=== PATIENT | female | born 1955 | race Caucasian/White ===

== ENCOUNTER → 2017-06-29 09:34 | Outpatient (CLI) | payer OTHER, SELFPAY ==
[2017-06-29 12:43] LABS: AST(SGOT) 22 U/L (15-37); Alanine Aminotransfer ALT/SGPT 22 U/L (13-56); Albumin, Serum 3.8 g/dL (3.2-5.0); Alkaline Phosphatase 83 U/L (45-117); Anion Gap 8 (5-15); BUN 13 mg/dL (7-18); BUN/Creat Ratio 16.9 RATIO (10-20); Calcium,Total 8.9 mg/dL (8.5-10.1); Chloride 104 mmol/L (98-107); Creatinine, Serum 0.77 mg/dL (0.55-1.02); EST Glomerular Filtration Rate 80 mL/min (>60); Est Glom Filt Rate - Afr Amer 97 mL/min (>60); Globulin 3.7 g/dL (2.2-4.2); Glucose 114 mg/dL (74-106); Potassium 3.9 mmol/L (3.5-5.1); Protein, Total 7.5 g/dL (6.4-8.2); Sodium Level 140 mmol/L (136-145)
[2017-06-29 12:48] LABS: Hemoglobin A1c 5.5 % (4.2-6.3)
== END ==
PROVIDERS: Family Provider Family Medicine; PCP Family Medicine; Visit Provider Family Medicine
DX: E11.9 Type 2 diabetes mellitus without complications (principal)
CPT/HCPCS: 36415; 80053; 83036

== ENCOUNTER → 2018-01-10 15:06 | Outpatient (CLI) | payer MEDICARE, OTHER, SELFPAY ==
[2018-01-10 18:04] LABS: Hemoglobin A1c 5.5 % (4.2-6.3)
== END ==
PROVIDERS: Family Provider Family Medicine; PCP Family Medicine; Referring Provider Family Medicine; Visit Provider Family Medicine
DX: E11.9 Type 2 diabetes mellitus without complications (principal)
CPT/HCPCS: 36415; 83036

== ENCOUNTER → 2019-04-12 11:15 | Outpatient (CLI) | payer MEDICARE, OTHER, SELFPAY ==
[2019-04-12 11:00] VITALS: BMI 43.4
[2019-04-12 12:51] LABS: Absolute Lymphocyte Count 1.58 X10^3/uL (0.83-4.51); Absolute Neutrophil Count 3.8 X10^3/uL (2.0-7.7); Basophil% 1.6 % (0-1); Eosinophil# 0.23 X10^3/uL; Eosinophils% 3.7 % (0-5); Hematocrit 43.4 % (37-47); Hemoglobin 14.3 g/dL (12.0-15.0); Lymphocyte # 1.58 X10^3/ul (4.0); Lymphocyte % 25.3 % (19-41); Mean Corp Hgb Conc 32.9 g/dL (32-36); Mean Corpuscular Hgb 27.1 pg (27.0-32.0); Mean Corpuscular Volume 82.4 fL (81-99); Mean Platelet Vol. 10.3 fl (6.2-12.0); Monocyte# 0.51 X10^3/uL; Monocyte% 8.2 % (0-10); NRBC Flagged by Analyzer 0 % (0-5); Neutrophil # 3.82 X10^3/uL (2.7-7.7); Platelet Count 249 K/mm3 (150-450); RBC Distribution Width CV 12.6 % (11.6-14.6); RBC Distribution Width SD 38.1 fl (35.1-43.9); Red Blood Count 5.27 M/mm3 (4.2-5.4); White Blood Count 6.3 K/mm3 (4.4-11.0)
[2019-04-12 12:53] LABS: ALB/GLOB Ratio 0.9 RATIO (0.9-2.4); AST(SGOT) 18 U/L (15-37); Alanine Aminotransfer ALT/SGPT 28 U/L (13-56); Albumin, Serum 3.6 g/dL (3.2-5.0); Alkaline Phosphatase 86 U/L (45-117); Anion Gap 6 (5-15); BUN 17 mg/dL (7-18); BUN/Creat Ratio 20.8 RATIO (10-20); Calcium,Total 9.1 mg/dL (8.5-10.1); Chloride 108 mmol/L (98-107); Creatinine, Serum 0.82 mg/dL (0.55-1.02); EST Glomerular Filtration Rate 75 mL/min (>60); Est Glom Filt Rate - Afr Amer 90 mL/min (>60); Globulin 3.8 g/dL (2.2-4.2); Glucose 137 mg/dL (74-106); Potassium 4.3 mmol/L (3.5-5.1); Protein, Total 7.4 g/dL (6.4-8.2); Sodium Level 139 mmol/L (136-145)
== END ==
PROVIDERS: Family Provider Family Medicine; PCP Family Medicine; Visit Provider Nurse Practitioner Family
DX: E11.9 Type 2 diabetes mellitus without complications (principal); M53.9 Dorsopathy, unspecified; R53.83 Other fatigue
CPT/HCPCS: 36415; 80053; 84443; 85025

== ENCOUNTER → 2019-08-21 09:56 | Outpatient (CLI) | payer MEDICARE, OTHER, SELFPAY ==
[2019-08-21 09:13] VITALS: BMI 43.4
--- NOTE | 2019-08-21 09:58 | RAD_ITS ---
STUDY: X-RAY - UNILATERAL RIBS ( RIGHT ) WITH CHEST REASON FOR EXAM: Female, 64 years old. Right side pain since having gallbladder removed about a year ago TECHNIQUE - RIBS: 4 view(s) of the ribs. TECHNIQUE - CHEST: Single PA view of the chest. COMPARISON: None. FINDINGS - RIBS: Normal visualized ribs without a demonstrated fracture. FINDINGS - CHEST: The lungs are clear and expanded. There is no demonstrated pleural abnormality. Normal size heart. Normal mediastinum and dhaval. Normal visualized pulmonary arteries. Normal visualized aortic arch and descending thoracic aorta. There are diffuse degenerative changes of the visualized thoracic spine. Normal visualized ribs, clavicles, and shoulders. There is no demonstrated abnormality of the visualized soft tissue structures of the upper abdomen. RAD/Ribs Uni Min 3V w/PA Chest IMPRESSION: RIBS: Normal x-ray examination of the ribs. CHEST: No acute pulmonary process Electronically Signed: Dakota Wooten MD at 10:31 EDT , Service support ,
== END ==
PROVIDERS: PCP Family Medicine; Referring Provider Family Medicine; Visit Provider Family Medicine
DX: R07.81 Pleurodynia (principal)
CPT/HCPCS: 71101

== ENCOUNTER → 2019-08-30 07:26 | Outpatient (CLI) | payer MEDICARE, OTHER, SELFPAY ==
[2019-08-21 09:13] VITALS: BMI 43.4
--- NOTE | 2019-08-30 07:30 | US_ITS ---
STUDY: ABDOMINAL ULTRASOUND - RIGHT UPPER QUADRANT REASON FOR VISIT: Female, 64 years old pain TECHNIQUE: Ultrasound evaluation of the right upper quadrant was performed with real-time and static miramontes-scale imaging. TECHNICAL QUALITY: Adequate. COMPARISON: None. FINDINGS: Liver: The liver measures 14.5 cm. There is increased echogenicity consistent with mild degree of fatty infiltration. The bile ducts are within normal limits. There is hepatic color flow. The direction of portal flow is hepatopetal. There is no demonstrated mass lesion. Gallbladder: The patient is status post cholecystectomy. Common Bile Duct (C.B.D.): The common bile duct measures 7.7 mm. Pancreas: There is nonvisualization of the pancreas due to overlying bowel gas. Right Kidney: Normal size of the right kidney. The right kidney measures 9.1 cm x 4.6 cm x 4.6 cm. Normal renal cortex. The right cortex measures 1.3 cm. There is no demonstrated renal mass or cyst. There is no right hydronephrosis. US/Liver IMPRESSION: The patient is status post cholecystectomy. Mild degree of fatty infiltration of the liver. Electronically Signed: Ronak Mancia, at 12:52 EDT , Service support ,
== END ==
PROVIDERS: PCP Family Medicine; Referring Provider Family Medicine; Visit Provider Family Medicine
DX: R10.11 Right upper quadrant pain (principal)
CPT/HCPCS: 76705

== ENCOUNTER → 2019-09-20 15:07 | Outpatient (CLI) | payer MEDICARE, OTHER, SELFPAY ==
[2019-09-20 13:49] VITALS: BMI 43.4
[2019-09-25 15:58] LABS: HPV Reflexed? NOT INDICATED
== END ==
PROVIDERS: PCP Family Medicine; Visit Provider Family Medicine
DX: Z01.419 Encounter for gynecological examination (general) (routine) without abnormal findings (principal)
CPT/HCPCS: 88175; G0145

== ENCOUNTER → 2019-10-03 15:33 | Outpatient (CLI) | payer MEDICARE, OTHER, SELFPAY ==
[2019-09-20 13:49] VITALS: BMI 43.4
--- NOTE | 2019-10-03 15:39 | BI_ITS ---
MAMMOGRAPHY - BILATERAL SCREENING REASON FOR EXAM: Female, 64 years old. Routine annual screening examination. PERTINENT HISTORY: Non-contributory. TECHNIQUE: Digital bilateral breast adwoa (3D mammographic acquisition) in the CC and MLO projections. 2-D mediolateral oblique (MLO) and craniocaudad (CC) views of both breasts were obtained. CAD: Full Field Digital Mammography with Computer Added Detection was performed. COMPARISON: Comparison is made with prior examination dated July 12, 2016 and January 07, 2016. FINDINGS: Breast Composition: The breasts are heterogeneously dense, which may obscure small masses. There are no dominant masses or suspicious calcifications. Stable benign-appearing axillary lymph nodes. No other significant abnormalities are identified. There has been no significant change since the prior study. BI/SCREEN MAMM (CAD) W/ADWOA BILAT IMPRESSION: Stable bilateral screening mammogram. Yearly follow-up mammogram recommended. (A) ASSESSMENT CATEGORY: BIRADS Category 2: Benign. A letter regarding these results will be sent to the patient by the facility within 30 days. Approximately 10% of breast cancers are not detected by mammography. A normal mammogram should not delay biopsy of a clinically suspicious abnormality. [id number] Electronically Signed: Ronak Mancia, at 7:27 EDT , Service support ,
== END ==
PROVIDERS: PCP Family Medicine; Referring Provider Family Medicine; Visit Provider Family Medicine
DX: Z12.31 Encounter for screening mammogram for malignant neoplasm of breast (principal)
CPT/HCPCS: 77063; 77067

== ENCOUNTER → 2019-10-24 10:46 | Outpatient (CLI) | payer MEDICARE, OTHER, SELFPAY ==
[2019-10-24 09:54] VITALS: BMI 42.6
== END ==
PROVIDERS: PCP Family Medicine; Referring Provider Chiropractor; Visit Provider Chiropractor
DX: M99.03 Segmental and somatic dysfunction of lumbar region (principal)
CPT/HCPCS: 72100

== ENCOUNTER → 2020-04-02 09:55 | Outpatient (CLI) | payer MEDICARE, OTHER, SELFPAY ==
[2020-04-02 09:02] VITALS: BMI 44.6
[2020-04-02 13:20] LABS: Hemoglobin A1c 5.7 % (3.8-5.6)
[2020-04-02 13:39] LABS: Anion Gap 7 (5-15); BUN 18 mg/dL (7-18); BUN/Creat Ratio 25.4 RATIO (10-20); Calcium,Total 9.2 mg/dL (8.5-10.1); Chloride 106 mmol/L (98-107); Creatinine, Serum 0.71 mg/dL (0.55-1.02); EST Glomerular Filtration Rate 87 mL/min (>60); Est Glom Filt Rate - Afr Amer 106 mL/min (>60); Glucose 110 mg/dL (74-106); Potassium 4.4 mmol/L (3.5-5.1); Sodium Level 137 mmol/L (136-145)
== END ==
PROVIDERS: PCP Family Medicine; Visit Provider Family Medicine
DX: E11.9 Type 2 diabetes mellitus without complications (principal)
CPT/HCPCS: 36415; 80048; 83036

== ENCOUNTER → 2020-07-29 11:27 | Outpatient (CLI) | payer MEDICARE, OTHER, SELFPAY ==
[2020-04-02 09:02] VITALS: BMI 44.6
[2020-07-29 15:01] LABS: Hematocrit 44.9 % (37-47); Hemoglobin 14.8 g/dL (12.0-15.0); Mean Corpuscular Hgb 27.2 pg (27.0-32.0); Mean Corpuscular Volume 82.5 fL (81-99); Mean Platelet Vol. 10.4 fl (6.2-12.0); Platelet Count 241 K/mm3 (150-450); RBC Distribution Width CV 12.5 % (11.6-14.6); RBC Distribution Width SD 37.5 fl (35.1-43.9); Red Blood Count 5.44 M/mm3 (4.2-5.4); White Blood Count 6.1 K/mm3 (4.4-11.0)
[2020-07-29 15:31] LABS: Hemoglobin A1c 5.8 % (3.8-5.6)
[2020-07-29 15:36] LABS: ALB/GLOB Ratio 1.2 RATIO (0.9-2.4); AST(SGOT) 15 U/L (15-37); Alanine Aminotransfer ALT/SGPT 26 U/L (13-56); Albumin, Serum 3.8 g/dL (3.2-5.0); Alkaline Phosphatase 88 U/L (45-117); Anion Gap 8 (5-15); BUN 12 mg/dL (7-18); BUN/Creat Ratio 16.9 RATIO (10-20); Chloride 106 mmol/L (98-107); Creatinine, Serum 0.71 mg/dL (0.55-1.02); EST Glomerular Filtration Rate 87 mL/min (>60); Est Glom Filt Rate - Afr Amer 105 mL/min (>60); Globulin 3.1 g/dL (2.2-4.2); Glucose 111 mg/dL (74-106); Potassium 4.1 mmol/L (3.5-5.1); Protein, Total 6.9 g/dL (6.4-8.2); Sodium Level 140 mmol/L (136-145); Thyroid Stim Hormone (TSH) 2.02 uIU/mL (0.358-3.74); Vitamin D,25 Hydroxy 12.4 ng/mL
== END ==
PROVIDERS: PCP Family Medicine; Referring Provider Psychiatry & Neurology Psychiatry; Visit Provider Psychiatry & Neurology Psychiatry
DX: R40.0 Somnolence (principal)
CPT/HCPCS: 36415; 80053; 82306; 83036; 84443; 85027

== ENCOUNTER → 2020-09-11 09:44 | Outpatient (CLI) | payer MEDICARE, OTHER, SELFPAY ==
[2020-04-02 09:02] VITALS: BMI 44.6
[2020-09-11 12:23] LABS: Vitamin D,25 Hydroxy 36.5 ng/mL
[2020-09-11 12:26] LABS: Cholesterol 254 mg/dL (200); Free T3 2.3 pg/mL (2.18-3.98); Glucose 129 mg/dL (74-106); High Density Lipoprotein 65 mg/dL; Thyroid Stim Hormone (TSH) 2.02 uIU/mL (0.358-3.74); Triglycerides 137 mg/dL; Very Low Density Lipoprotein 27 mg/dL (5-40)
== END ==
PROVIDERS: PCP Family Medicine; Referring Provider Psychiatry & Neurology Psychiatry; Visit Provider Psychiatry & Neurology Psychiatry
DX: R73.03 Prediabetes (principal); E55.9 Vitamin D deficiency, unspecified
CPT/HCPCS: 36415; 80061; 82306; 82947; 84439; 84443; 84481

== ENCOUNTER → 2020-12-18 15:03 | Outpatient (CLI) | payer MEDICARE, OTHER, SELFPAY ==
[2020-12-18 18:45] LABS: Free T3 2.6 pg/mL (2.18-3.98); T4 Free Direct 0.78 ng/dL (0.76-1.46)
== END ==
PROVIDERS: PCP Family Medicine; Referring Provider Psychiatry & Neurology Psychiatry; Visit Provider Psychiatry & Neurology Psychiatry
DX: Z79.899 Other long term (current) drug therapy (principal)
CPT/HCPCS: 36415; 84439; 84443; 84481

== ENCOUNTER 2021-06-02 12:59 | Outpatient (CLI) | payer MEDICARE, OTHER, SELFPAY ==
--- NOTE | 2021-06-02 13:01 | BI_ITS ---
MAMMOGRAPHY - BILATERAL SCREENING REASON FOR EXAM: Female, 66 years old. Routine annual screening examination. PERTINENT HISTORY: Non-contributory. History of prior left breast biopsy. TECHNIQUE: Digital bilateral breast adwoa (3D mammographic acquisition) in the CC and MLO projections. 2-D mediolateral oblique (MLO) and craniocaudad (CC) views of both breasts were obtained. CAD: Full Field Digital Mammography with Computer Added Detection was performed. COMPARISON: Comparison is made with prior study dated 10/03/2019. FINDINGS: Breast Composition: The breasts are heterogeneously dense, which may obscure small masses. There are no dominant masses or suspicious calcifications. Stable small benign appearing bilateral axillary nodes. No other significant abnormalities are identified. There has been no significant change since the prior study. BI/SCRN MAMM (CAD)W/ADWOA BILAT IMPRESSION: Stable bilateral screening mammogram. Yearly follow-up mammogram recommended. (A) ASSESSMENT CATEGORY: BIRADS Category 2: Benign. A letter regarding these results will be sent to the patient by the facility within 30 days. Approximately 10% of breast cancers are not detected by mammography. A normal mammogram should not delay biopsy of a clinically suspicious abnormality. [id number] Electronically Signed: Ronak Mancia MD at 14:19 EST ,
== END 2021-06-02 23:59 | disposition home or self-care (01) ==
LOC: OPBI 13:00
PROVIDERS: PCP Family Medicine; Referring Provider Family Medicine; Visit Provider Family Medicine
DX: Z12.31 Encounter for screening mammogram for malignant neoplasm of breast (principal)
CPT/HCPCS: 77063; 77067

== ENCOUNTER 2021-07-03 15:24 | Outpatient (CLI) | payer MEDICARE, OTHER, SELFPAY ==
[2021-07-03 18:24] LABS: Free T3 2.3 pg/mL (2.18-3.98); T4 Free Direct 0.85 ng/dL (0.76-1.46); Thyroid Stim Hormone (TSH) 1.86 uIU/mL (0.358-3.74)
== END 2021-07-03 23:59 | disposition home or self-care (01) ==
LOC: MTLAB 15:25
PROVIDERS: PCP Family Medicine; Referring Provider Psychiatry & Neurology Psychiatry; Visit Provider Psychiatry & Neurology Psychiatry
DX: R94.6 Abnormal results of thyroid function studies (principal); E03.9 Hypothyroidism, unspecified
CPT/HCPCS: 36415; 84439; 84443; 84481

== ENCOUNTER → 2021-12-16 | Outpatient (CLI) | payer MEDICARE, OTHER, SELFPAY ==
[2021-12-16 15:13] LABS: Anion Gap 7 (5-15); BUN 14 mg/dL (7-18); BUN/Creat Ratio 18.1 RATIO (10-20); Calcium,Total 8.9 mg/dL (8.5-10.1); Chloride 104 mmol/L (98-107); Creatinine, Serum 0.77 mg/dL (0.55-1.02); EST Glomerular Filtration Rate 79 mL/min (>60); Est Glom Filt Rate - Afr Amer 95 mL/min (>60); Glucose 131 mg/dL (74-106); Sodium Level 139 mmol/L (136-145)
== END | disposition home or self-care (01) ==
LOC: BIMLAB 13:36
PROVIDERS: PCP Family Medicine; Referring Provider Family Medicine; Visit Provider Family Medicine
DX: I10 Essential (primary) hypertension (principal)
CPT/HCPCS: 36415; 80048

== ENCOUNTER → 2022-05-14 | Outpatient (CLI) | payer MEDICARE, OTHER, SELFPAY ==
[2022-05-14 10:20] LABS: Cholesterol 256 mg/dL (200); Free T3 2.8 pg/mL (2.18-3.98); Glucose 144 mg/dL (74-106); High Density Lipoprotein 61 mg/dL; T4 Free Direct 0.86 ng/dL (0.76-1.46); Thyroid Stim Hormone (TSH) 2.69 uIU/mL (0.358-3.74); Triglycerides 134 mg/dL; Very Low Density Lipoprotein 27 mg/dL (5-40)
[2022-05-14 10:23] LABS: Hemoglobin A1c 5.9 % (3.8-5.6)
== END | disposition home or self-care (01) ==
LOC: MTLAB 07:42
PROVIDERS: PCP Family Medicine; Referring Provider Psychiatry & Neurology Psychiatry; Visit Provider Psychiatry & Neurology Psychiatry
DX: E03.9 Hypothyroidism, unspecified (principal); E88.81 Metabolic syndrome and other insulin resistance
CPT/HCPCS: 36415; 80061; 82947; 83036; 84439; 84443; 84481

== ENCOUNTER → 2022-06-03 | Outpatient (CLI) | payer MEDICARE, OTHER, SELFPAY ==
--- NOTE | 2022-06-03 15:12 | BI_ITS ---
MAMMOGRAPHY - BILATERAL SCREENING REASON FOR EXAM: Female, 67 years old. Routine annual screening examination. PERTINENT HISTORY: Non-contributory. Remote left breast biopsy. TECHNIQUE: Digital bilateral breast adwoa (3D mammographic acquisition) in the CC and MLO projections. 2-D mediolateral oblique (MLO) and craniocaudad (CC) views of both breasts were obtained. CAD: Full Field Digital Mammography with Computer Added Detection was performed. COMPARISON: Comparison is made with prior study dated June 02, 2021 and October 03, 2019. FINDINGS: Breast Composition: The breasts are heterogeneously dense, which may obscure small masses. There are no dominant masses or suspicious calcifications. A tissue clip marker is once again seen in the retroareolar region of the right breast. Scattered bilateral calcifications. No focal cluster is seen. No other significant abnormalities are identified. BI/SCRN MAMM (CAD)W/ADWOA BILAT IMPRESSION: Stable bilateral screening mammogram. Yearly follow-up mammogram recommended. (A) ASSESSMENT CATEGORY: BIRADS Category 2: Benign. A letter regarding these results will be sent to the patient by the facility within 30 days. Approximately 10% of breast cancers are not detected by mammography. A normal mammogram should not delay biopsy of a clinically suspicious abnormality. [id number] Electronically Signed: Ronak Mancia MD at 8:13 EST ,
== END | disposition home or self-care (01) ==
LOC: OPBI 15:10
PROVIDERS: PCP Family Medicine; Visit Provider Family Medicine
DX: Z12.31 Encounter for screening mammogram for malignant neoplasm of breast (principal)
CPT/HCPCS: 77063; 77067

== ENCOUNTER → 2022-06-23 | Outpatient (CLI) | payer MEDICARE, OTHER, SELFPAY ==
--- NOTE | 2022-06-23 16:13 | RAD_ITS ---
INDICATION: Cough EXAMINATION/TECHNIQUE: X-RAY - XR Chest 2 Views COMPARISON: 08/21/2019 FINDINGS: LINES/DEVICES: None. LUNGS: No consolidation, edema or effusion. No pneumothorax. MEDIASTINUM AND CARDIOVASCULAR STRUCTURES: Cardiac silhouette not enlarged. Central airways and mediastinal contour are unremarkable. RAD/Chest PA and Lateral IMPRESSION: No radiographic evidence of acute cardiopulmonary disease. Electronically Signed: Milton Corea MD at 20:28 EDT ,
== END | disposition home or self-care (01) ==
LOC: MTRAD 16:12
PROVIDERS: PCP Family Medicine; Referring Provider Nurse Practitioner Family; Visit Provider Nurse Practitioner Family
DX: R05.9 Cough, unspecified (principal)
CPT/HCPCS: 71046

== ENCOUNTER → 2022-12-28 | Outpatient (CLI) | payer MEDICARE, OTHER, SELFPAY ==
[2022-12-28 16:09] LABS: ALB/GLOB Ratio 1.1 RATIO (0.9-2.4); AST(SGOT) 17 U/L (15-37); Alanine Aminotransfer ALT/SGPT 31 U/L (13-56); Albumin, Serum 3.7 g/dL (3.2-5.0); Alkaline Phosphatase 91 U/L (45-117); Anion Gap 7 (5-15); BUN 13 mg/dL (7-18); BUN/Creat Ratio 19.6 RATIO (10-20); Calcium,Total 8.9 mg/dL (8.5-10.1); Chloride 104 mmol/L (98-107); Creatinine, Serum 0.66 mg/dL (0.55-1.02); EST Glomerular Filtration Rate 94 mL/min (>60); Est Glom Filt Rate - Afr Amer 113 mL/min (>60); Globulin 3.3 g/dL (2.2-4.2); Glucose 103 mg/dL (74-106); Potassium 4.2 mmol/L (3.5-5.1); Sodium Level 139 mmol/L (136-145); T4 Free Direct 0.94 ng/dL (0.76-1.46); Thyroid Stim Hormone (TSH) 1.97 uIU/mL (0.358-3.74)
== END | disposition home or self-care (01) ==
LOC: BIMLAB 14:28
PROVIDERS: PCP Family Medicine; Visit Provider Family Medicine
DX: E11.9 Type 2 diabetes mellitus without complications (principal); E03.9 Hypothyroidism, unspecified
CPT/HCPCS: 36415; 80053; 84439; 84443

== ENCOUNTER → 2023-01-05 | Outpatient (CLI) | payer MEDICARE, OTHER, SELFPAY ==
--- NOTE | 2023-01-06 10:58 | PFT ---
INTRODUCTION: The patient is a 68-year-old female who presents for pulmonary function studies secondary to a diagnosis of cough. Respiratory therapy reported good patient effort. Bronchodilators were used during testing. INTERPRETATION: Forced expiration spirometry demonstrates no evidence of a large airways obstructive ventilatory defect. There was no significant response to aerosolized bronchodilators. Spirograms are of good quality and plateau normally. Body plethysmography was performed and revealed lung volumes to be within normal limits. Diffusing capacity by single breath CO was also within normal limits. IMPRESSION: Grossly normal pulmonary function studies.
== END | disposition home or self-care (01) ==
LOC: PSN 12:11
PROVIDERS: PCP Family Medicine; Referring Provider Family Medicine; Visit Provider Family Medicine
DX: R05.9 Cough, unspecified (principal)
CPT/HCPCS: 94060; 94726; 94729

== ENCOUNTER → 2023-01-26 | Outpatient (CLI) | payer MEDICARE, OTHER, SELFPAY ==
[2023-01-28 11:09] LABS: Lead, Blood Adult 16+yrs < 1.0 ug/dL (0.0-3.4)
== END | disposition home or self-care (01) ==
LOC: BIMLAB 13:31
PROVIDERS: PCP Family Medicine; Referring Provider Family Medicine; Visit Provider Family Medicine
DX: Z77.011 Contact with and (suspected) exposure to lead (principal)
CPT/HCPCS: 36415; 83655

== ENCOUNTER → 2023-03-10 | Outpatient (CLI) | payer MEDICARE, OTHER, SELFPAY | END | disposition home or self-care (01) | LOC: SL 13:14 | PROVIDERS: PCP Family Medicine; Referring Provider Family Medicine; Visit Provider Family Medicine | DX: G47.30 Sleep apnea, unspecified (principal) | CPT/HCPCS: 95806 ==

== ENCOUNTER → 2023-04-18 | Outpatient (CLI) | payer MEDICARE, OTHER, SELFPAY ==
--- OUTSIDE RECORDS SUMMARY | 2023-04-18 12:44 | XMS RPT_ITS | CCD ---
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 Name Role Phone MAZIN ARREOLA Unavailable Unavailable ELIZABETH FARRAR Unavailable Unavailable NARACARMEN GOMEZ Unavailable Unavailable SABOTA, YANNI W Unavailable Unavailable PEYTON ARREOLA Unavailable Unavailable CHARAN, ELIZABETH Unavailable Unavailable JABOUR, JANETTE Unavailable Unavailable BRANDON FARRARLAS Unavailable Unavailable Results Test Name Value Interpretation Reference Range Facil ity Encounters Encounter Date Encounter Type Care Provider Facility Start: 03-04-2017 End: 03-05-2017 Ambulatory JANETTE CARDOSO Facility:[facility] Start: 03-02-2017 End: 03-03-2017 Ambulatory PEYTON ARREOLA Facility:[facility] Start: 03-01-2017 End: 03-01-2017 Emergency department patient visit MAZIN ARREOLA Facility:[facility] Payers Date Payer Category Payer Private Health Insurance [id number] Summary Purpose Family History No Family History Records Found Advance Directives No Advanced Directives Records Found Additional Source Comments INFORMATION SOURCE (unrecogn ized section and content) FOR RECORDS PERTAINING TO PATIENTS WHO ARE OR HAVE BEEN ENROLLED IN A CHEMICAL DEPENDENCY/SUBSTANCEABUSE PROGRAM, SOME INFORMATION MAY BE OMITTED. This clinical summary was aggregated from multiple sources. Caution should be exercised in using it in the provision of clinical care. This summary normalizes information from multiple sources, and as a consequence, information in this document may materially change the coding, format and clinical context of patient data. In addition, data may be omitted in some cases. CLINICAL DECISIONS SHOULD BE BASED ON THE PRIMARY CLINICAL RECORDS. [employer] provides no warranty or guarantee of the accuracy or completeness of information in this document."
== END | disposition home or self-care (01) ==
LOC: SL 12:16
PROVIDERS: PCP Family Medicine; Visit Provider Nurse Practitioner Acute Care
DX: Z00.00 Encounter for general adult medical examination without abnormal findings (principal)

== ENCOUNTER → 2023-05-13 | Outpatient (CLI) | payer MEDICARE, OTHER, SELFPAY ==
--- NOTE | 2023-05-13 12:53 | CT_ITS ---
STUDY: CT CHEST WITHOUT CONTRAST REASON FOR EXAM: Female, 68 years old. Pulmonary nodule RADIATION DOSAGE (If Supplied By Facility): CTDIvol = ( 16.80 ) mGy, DLP = ( 567.62 ) mGycm TECHNIQUE: Transaxial imaging was performed without the administration of intravenous contrast material. Multiplanar coronal and sagittal images were reformatted. Individualized dose optimization techniques were used for this CT. COMPARISON: No relevant priors. FINDINGS: CHEST Minimal linear scarring is seen in the anterior aspect of the right upper lobe. Minimal scarring in the anterior aspect of the left lower lobe. There is no demonstrated pleural abnormality. There are calcifications of the coronary arteries. Normal mediastinum. Normal hilar regions. Normal unenhanced pulmonary arteries. There is atherosclerotic calcification of the aortic arch. There are multi-level degenerative changes of the thoracic spine. Increased kyphosis. The patient is status post cholecystectomy. CT/Chest without Contrast IMPRESSION: Minimal scarring in the anterior aspect of the right upper lobe and anterior aspect of the left lower lobe. Electronically Signed: Ronak Mancia MD at 14:10 EST ,
== END | disposition home or self-care (01) ==
LOC: CT 12:50
PROVIDERS: PCP Family Medicine; Referring Provider Family Medicine; Visit Provider Family Medicine
DX: R91.1 Solitary pulmonary nodule (principal)
CPT/HCPCS: 71250

== ENCOUNTER → 2023-05-17 | Outpatient (CLI) | payer MEDICARE, OTHER, SELFPAY ==
--- OUTSIDE RECORDS SUMMARY | 2023-05-17 18:14 | XMS RPT_ITS | CCD ---
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 Name Role Phone MAZIN ARREOLA Unavailable Unavailable ELIZABETH WYMAN Unavailable Unavailable CARMEN BAINS Unavailable Unavailable YANNI FORD Unavailable Unavailable PEYTON ARREOLA Unavailable Unavailable ELIZABETH WYMAN Unavailable Unavailable JANETTE CARDOSO Unavailable Unavailable ELIZABETH WYMAN Unavailable Unavailable ELIZABETH WYMAN DO Primary Care Physician Medications Current Medications Medication Drug Class(es) Dates Sig (Normalized) Sig (Original) amLODIPine 5 mg oral tablet (1 source) Dihydropyridine Calcium Channel Lefty Start: 4 take 1 tablet by mouth once daily amLODIPine 5 mg oral tablet Dose : 5 mg =, Oral, qDay, # 30 tab(s), 0 Refill(s) Start Date: 04/30/23 Status: Ordered dexamethasone 6 mg oral tablet (1 source) Corticosteroid Start: 4 End: 4 dexAMETHasone 6 mg oral tablet Dose : 6 mg = 1 tab(s), Oral, qDay, X 8 day(s), # 8 tab(s), 0 Refill(s), 05/11/23 9:00:00 AM EST, Pharmacy: [id number], 149.9, cm, 04/30/23 23:12:00 EST, Height, kg, 04/30/23 23:12:00 EST, Dosing Weight Start Date: 05/03/23 Stop Date: 05/11/23 Status: Ordered Triiodothyronine (1 source) l-Triiodothyronine Start: 4 take 1 dose by mouth twice daily liothyronine Dose : 5 mcg =, Oral, BID, 0 Refill(s) Start Date: 04/30/23 Status: Ordered sertraline 200 mg oral tablet (1 source) Serotonin Reuptake Inhibitor Start: 7 take 1 dose by mouth once daily Zoloft Dose : 200 mg =, Oral, qDay, 0 Refill(s) Start Date: 03/01/17 Status: Ordered trifluoperazine 1 mg oral tablet (1 source) Phenothiazine Start: 4 take 1 tablet by mouth once daily trifluoperazine 1 mg oral tablet Dose : 10 mg =, Oral, qDay, # 90 tab(s), 0 Refill(s) Start Date: 04/30/23 Status: Ordered Vitamin B Complex oral capsule (1 source) Start: 4 take 1 capsule by mouth once daily Vitamin B Complex oral capsule Dose = 1 cap(s), Oral, Daily, 0 Refill(s) Start Date: 04/30/23 Status: Ordered Vitamin E (1 source) Start: 4 take 1 tablet by mouth once daily vitamin E 1 tab, Oral, qDay, 0 Refill(s) Start Date: 04/30/23 Status: Ordered Problems Active Problems Problem Classification Problem Date Documented Da te Episodic/Chronic Essential hypertension (1 source) Essential hypertension; Translations: [Essential (primary) hypertension] Onset: 05-01-2023 Chronic Residual codes; unclassified (1 source) Sleep apnea; Translations: [Sleep apnea, unspecified] Onset: 05-01-2023 Chronic Respiratory failure; insufficiency; arrest (adult) (1 source) Acute respiratory failure; Translations: [Acute respiratory failure with hypoxia] Onset: 05-01-2023 Episodic Thyroid disorders (1 source) Hypothyroidism; Translations: [Hypothyroidism, unspecified] Onset: 05-01-2023 Chronic Past or Other Problems Problem Classification Problem Date Documented Da te Episodic/Chronic Viral infection (1 source) Disease caused by 2019-nCoV; Translations: [COVID-19] Onset: 05-01-2023 Results Test Name Value Interpretation Reference Range Facil ity Vital Signs Date Time Vital Sign Value Performing Clinician Paulo fine 05-02-2023 13:30-0500 Body temperature 97.34 [degF] BENJAMIN THAKUR [facility] 05-02-2023 13:30-0500 Diastolic Blood Pressure Non-Invasive 78 mm[Hg] BENJAMIN WHITE CREATIVE DESIGNER-PAPER BALER [facility] 05-02-2023 13:30-0500 Heart rate 75 /min BENJAMIN WHITE CREATIVE DESIGNER-PAPER BALER [facility] 05-02-2023 13:30-0500 Reason For Taking VItal Signs BENJAMIN WHITE CREATIVE DESIGNER-PAPER BALER [facility] 05-02-2023 13:30-0500 Respiratory rate 18 /min BENJAMIN WHITE CREATIVE DESIGNER-PAPER BALER [facility] 05-02-2023 13:30-0500 Systolic Blood Pressure Non-Invasive 132 mm[Hg] BENJAMIN WHITE CREATIVE DESIGNER-PAPER BALER [facility] 05-02-2023 08:45-0500 Body temperature 98.78 [degF] BENJAMIN WHITE CREATIVE DESIGNER-PAPER BALER [facility] 05-02-2023 08:45-0500 Diastolic Blood Pressure Non-Invasive 73 mm[Hg] BENJAMIN WHITE CREATIVE DESIGNER-PAPER BALER [facility] 05-02-2023 08:45-0500 Heart rate 66 /min BENJAMIN WHITE CREATIVE DESIGNER-PAPER BALER [facility] 05-02-2023 08:45-0500 Reason For Taking VItal Signs BENJAMIN WHITE CREATIVE DESIGNER-PAPER BALER [facility] 05-02-2023 08:45-0500 Respiratory rate 20 /min BENJAMIN WHITE CREATIVE DESIGNER-PAPER BALER [facility] 05-02-2023 08:45-0500 Systolic Blood Pressure Non-Invasive 124 mm[Hg] BENJAMIN WHITE CREATIVE DESIGNER-PAPER BALER [facility] 05-02-2023 03:53-0500 Respiratory rate 18 /min BENJAMIN WHITE CREATIVE DESIGNER-PAPER BALER [facility] 05-02-2023 03:37-0500 Body temperature 98.06 [degF] BENJAMIN WHITE CREATIVE DESIGNER-PAPER BALER [facility] 05-02-2023 03:37-0500 Diastolic Blood Pressure Non-Invasive 68 mm[Hg] BENJAMIN WHITE CREATIVE DESIGNER-PAPER BALER [facility] 05-02-2023 03:37-0500 Heart rate 63 /min BENJAMIN WHITE CREATIVE DESIGNER-PAPER BALER [facility] 05-02-2023 03:37-0500 Reason For Taking VItal Signs BENJAMIN WHITE CREATIVE DESIGNER-PAPER BALER [facility] 05-02-2023 03:37-0500 Systolic Blood Pressure Non-Invasive 138 mm[Hg] BENJAMIN WHITE CREATIVE DESIGNER-PAPER BALER [facility] 05-01-2023 22:59-0500 Heart rate 73 /min BENJAMIN WHITE CREATIVE DESIGNER-PAPER BALER [facility] 05-01-2023 19:00-0500 Heart rate 77 /min BENJAMIN WHITE CREATIVE DESIGNER-PAPER BALER [facility] 05-01-2023 15:47-0500 Mean blood pressure 70 mm[Hg] BENJAMIN WHITE CREATIVE DESIGNER-PAPER BALER [facility] 05-01-2023 12:00-0500 Heart rate 70 /min BENJAMIN WHITE CREATIVE DESIGNER-PAPER BALER [facility] 05-01-2023 09:16-0500 Heart rate 63 /min BENJAMIN WHITE CREATIVE DESIGNER-PAPER BALER [facility] 05-01-2023 05:15-0500 Mean blood pressure 70 mm[Hg] BENJAMIN WHITE CREATIVE DESIGNER-PAPER BALER [facility] 04-30-2023 23:12-0500 Body height 149.9 cm BENJAMIN WHITE CREATIVE DESIGNER-PAPER BALER [facility] 04-30-2023 23:12-0500 Body weight 107 kg BENJAMIN WHITE CREATIVE DESIGNER-PAPER BALER [facility] 04-30-2023 23:12-0500 Body weight 47.62 kg/m2 BENJAMIN WHITE CREATIVE DESIGNER-PAPER BALER [facility] 04-30-2023 22:40-0500 Mean blood pressure 68 mm[Hg] BENJAMIN WHITE CREATIVE DESIGNER-PAPER BALER [facility] 04-30-2023 21:50-0500 Heart rate 91 /min BENJAMIN WHITE CREATIVE DESIGNER-PAPER BALER [facility] 04-30-2023 19:42-0500 Body height 149.9 cm BENJAMIN WHITE CREATIVE DESIGNER-PAPER BALER [facility] 04-30-2023 19:42-0500 Body weight 109.1 kg BENJAMIN WHITE CREATIVE DESIGNER-PAPER BALER [facility] Encounters Encounter Date Encounter Type Care Provider Facility Start: 04-30-2023 End: 05-02-2023 Evaluation and management of inpatient BENJAMIN WHITE CREATIVE DESIGNER-PAPER BALER [facility] Start: 03-04-2017 End: 03-05-2017 Ambulatory JANETTE CARDOSO Facility:[facility] Start: 03-02-2017 End: 03-03-2017 Ambulatory PEYTON ARREOLA Facility:[facility] Start: 03-01-2017 End: 03-01-2017 Emergency department patient visit MAZIN Cano ARREOLA Facility:B Procedures Date Procedure Procedure Detail Performing Clinician Cholecystectomy BENJAMIN WHITE CREATIVE DESIGNER-PAPER BALER Hemorrhoidectomy BENJAMIN Jenkins CREATIVE DESIGNER-PAPER BALER Osteophyte of bone (disorder) BENJAMIN WHITE CREATIVE DESIGNER-PAPER BALER Immunizations Immunization Date Immunization Notes Care Provider Fa cili 06-13-2020 SARS-CoV-2 (COVID-19 ) [id number] vaccine BENJAMIN WHITE CREATIVE DESIGNER-[employer] [facility] 01-22-2020 influenza virus vaccine, unspecified formulation BENJAMIN WHITE CREATIVE DESIGNER-[employer] [facility] 12-04-2019 zoster vaccine recombinant BENJAMIN WHITE CREATIVE DESIGNER-PAPER BALER [facility] 09-28-2019 zoster vaccine recombinant BENJAMIN WHITE CREATIVE DESIGNER-PAPER BALER [facility] 12-18-2015 tetanus toxoid, redu hansel diphtheria toxoid, and acellular pertussis vaccine, adsorbed BENJAMIN WHITE CREATIVE DESIGNER-PAPER BALER [facility] 06-26-2015 zoster vaccine, live BENJAMIN WHITE CREATIVE DESIGNER-PAPER BALER [facility] 05-01-2013 influenza virus vaccine, unspecified formulation BENJAMIN WHITE CREATIVE DESIGNER-PAPER BALER [facility] Payers Date Payer Category Payer Private Health Insurance [id number] Social History Date Type Detail Facility Start: 04-30-2023 Tobacco smoking status Never s moked tobacco (finding) [facility] Tobacco smoking status Never [facility] Functional Status Date Assessment Result Facility 05-02-2023 Functional Status Nurse Safety C asad q2hrs Performed 7am-3pm [facility] 05-02-2023 Functional Status Sequential Com pression Device bilateral knee high applied/on [facility] 05-02-2023 Functional Status Door open, Non-Slip footwear, Room check performed [facility] 05-02-2023 Functional Status [facility] 05-02-2023 Functional Status [facility] 05-01-2023 Functional Status [facility] 05-01-2023 Functional Status Multilevel home [facility] 05-01-2023 Functional Status Positioning Repositions self [facility] 04-30-2023 Functional Status [facility] 04-30-2023 Functional Status Independent [facility] Mental Status Date Assessment Result Facility 05-02-2023 Mental Status Oriented x 4 [facility] 05-01-2023 Mental Status [facility] Discharge instructions 05-02-2023 Note Date & Type Note Facility 05-02-2023 Hospital Discharg e instructions Patient Education 05/02/2023 12:26:35 COVID-19 COVID-19 COVID-19 is a respiratory infection that is caused by a virus called severe acute respiratory syndrome coronavirus 2 (SARS-CoV-2). The disease is also known as coronavirus disease or novel coronavirus. In some people, the virus may not cause any symptoms. In others, it may cause a serious infection. The infection can get worse quickly and can lead to complications, such as: Pneumonia, or infection of the lungs. Acute respiratory distress syndrome or ARDS. This is fluid build-up in the lungs. Acute respiratory failure. This is a condition in which there is not enough oxygen passing from the lungs to the body. Sepsis or septic shock. This is a serious bodily reaction to an infection. Blood clotting problems. Secondary infections due to bacteria or fungus. The virus that causes COVID-19 is contagious. This means that it can spread from person to person through droplets from coughs and sneezes (respiratory secretions). What are the causes? This illness is caused by a virus. You may catch the virus by: Breathing in droplets from an infected person's cough or sneeze. Touching something, like a table or a doorknob, that was exposed to the virus (contaminated) and then touching your mouth, nose, or eyes. What increases the risk? Risk for infection You are more likely to be infected with this virus if you: Live in or travel to an area with a COVID-19 outbreak. Come in contact with a sick person who recently traveled to an area with a COVID-19 outbreak. Provide care for or live with a person who is infected with COVID-19. Risk for serious illness You are more likely to become seriously ill from the virus if you: Are 65 years of age or older. Have a long-term disease that lowers your body's ability to fight infection (immunocompromised). Live in a residential or long-term care facility. Have a long-term (chronic) disease such as: ?Chronic lung disease, including chronic obstructive pulmonary disease or asthma ?Heart disease. ?Diabetes. ?Chronic kidney disease. ?Liver disease. Are obese. What are the signs or symptoms? Symptoms of this condition can range from mild to severe. Symptoms may appear any time from 2 to 14 days after being exposed to the virus. They include: A fever. A cough. Difficulty breathing. Chills. Muscle pains. A sore throat. Loss of taste or smell. Some people may also have stomach problems, such as nausea, vomiting, or diarrhea. Other people may not have any symptoms of COVID-19. How is this diagnosed? This condition may be diagnosed based on: Your signs and symptoms, especially if: ?You live in an area with a COVID-19 outbreak. ?You recently traveled to or from an area where the virus is common. ?You provide care for or live with a person who was diagnosed with COVID-19. A physical exam. Lab tests, which may include: ?A nasal swab to take a sample of fluid from your nose. ?A throat swab to take a sample of fluid from your throat. ?A sample of mucus from your lungs (sputum). ?Blood tests. Imaging tests, which may include, X-rays, CT scan, or ultrasound. How is this treated? At present, there is no medicine to treat COVID-19. Medicines that treat other diseases are being used on a trial basis to see if they are effective against COVID-19. Your health care provider will talk with you about ways to treat your symptoms. For most people, the infection is mild and can be managed at home with rest, fluids, and fwez-bap-tgksooc medicines. Treatment for a serious infection usually takes places in a hospital intensive care unit (ICU). It may include one or more of the following treatments. These treatments are given until your symptoms improve. Receiving fluids and medicines through an IV. Supplemental oxygen. Extra oxygen is given through a tube in the nose, a face mask, or a lane. Positioning you to lie on your stomach (prone position). This makes it easier for oxygen to get into the lungs. Continuous positive airway pressure (CPAP) or bi-level positive airway pressure (BPAP) machine. This treatment uses mild air pressure to keep the airways open. A tube that is connected to a motor delivers oxygen to the body. Ventilator. This treatment moves air into and out of the lungs by using a tube that is placed in your windpipe. Tracheostomy. This is a procedure to create a hole in the neck so that a breathing tube can be inserted. Extracorporeal membrane oxygenation (ECMO). This procedure gives the lungs a chance to recover by taking over the functions of the heart and lungs. It supplies oxygen to the body and removes carbon dioxide. Follow these instructions at home: Lifestyle If you are sick, stay home except to get medical care. Your health care provider will tell you how long to stay home. Call your health care provider before you go for medical care. Rest at home as told by your health care provider. Do not use any products that contain nicotine or tobacco, such as cigarettes, e-cigarettes, and chewing tobacco. If you need help quitting, ask your health care provider. Return to your normal activities as told by your health care provider. Ask your health care provider what activities are safe for you. General instructions Take yrmg-uqj-ndkadhu and prescription medicines only as told by your health care provider. Drink enough fluid to keep your urine pale yellow. Keep all follow-up visits as told by your health care provider. This is important. How is this prevented? There is no vaccine to help prevent COVID-19 infection. However, there are steps you can take to protect yourself and others from this virus. To protect yourself: Do not travel to areas where COVID-19 is a risk. The areas where COVID-19 is reported change often. To identify high-risk areas and travel restrictions, check the [facility] travel website: wwwnc.cdc.gov/travel/notices If you live in, or must travel to, an area where COVID-19 is a risk, take precautions to avoid infection. ?Stay away from people who are sick. ?Wash your hands often with soap and water for 20 seconds. If soap and water are not available, use an alcohol-based hand director women. ?Avoid touching your mouth, face, eyes, or nose. ?Avoid going out in public, follow guidance from your state and local health authorities. ?If you must go out in public, wear a cloth face covering or face mask. ?Disinfect objects and surfaces that are frequently touched every day. This may include: ?Counters and tables. ?Doorknobs and light switches. ?Sinks and faucets. ?Electronics, such as phones, remote controls, keyboards, computers, and tablets. To protect others: If you have symptoms of COVID-19, take steps to prevent the virus from spreading to others. If you think you have a COVID-19 infection, contact your health care provider right away. Tell your health care team that you think you may have a COVID-19 infection. Stay home. Leave your house only to seek medical care. Do not use public transport. Do not travel while you are sick. Wash your hands often with soap and water for 20 seconds. If soap and water are not available, use alcohol-based hand director women. Stay away from other members of your household. Let healthy household members care for children and pets, if possible. If you have to care for children or pets, wash your hands often and wear a mask. If possible, stay in your own room, separate from others. Use a different bathroom. Make sure that all people in your household wash their hands well and often. Cough or sneeze into a tissue or your sleeve or elbow. Do not cough or sneeze into your hand or into the air. Wear a cloth face covering or face mask. Where to find more information Centers for Disease Control and Prevention: www.cdc.gov/coronavirus/2019-n cov/index.html World Health Organization: www.who.int/health-topics/tavo navirus Contact a health care provider if: You live in or have traveled to an area where COVID-19 is a risk and you have symptoms of the infection. You have had contact with someone who has COVID-19 and you have symptoms of the infection. Get help right away if: You have trouble breathing. You have pain or pressure in your chest. You have confusion. You have bluish lips and fingernails. You have difficulty waking from sleep. You have symptoms that get worse. These symptoms may represent a serious problem that is an emergency. Do not wait to see if the symptoms will go away. Get medical help right away. Call your local emergency services (911 in the [place] Do not drive yourself to the hospital. Let the emergency medical personnel know if you think you have COVID-19. Summary COVID-19 is a respiratory infection that is caused by a virus. It is also known as coronavirus disease or novel coronavirus. It can cause serious infections, such as pneumonia, acute respiratory distress syndrome, acute respiratory failure, or sepsis. The virus that causes COVID-19 is contagious. This means that it can spread from person to person through droplets from coughs and sneezes. You are more likely to develop a serious illness if you are 65 years of age or older, have a weak immunity, live in a residential, or have chronic disease. There is no medicine to treat COVID-19. Your health care provider will talk with you about ways to treat your symptoms. Take steps to protect yourself and others from infection. Wash your hands often and disinfect objects and surfaces that are frequently touched every day. Stay away from people who are sick and wear a mask if you are sick. This information is not intended to replace advice given to you by your health care provider. Make sure you discuss any questions you have with your health care provider. Document Released: 04/26/2019 Document Revised: 08/16/2019 Document Reviewed: 04/26/2019 [employer] Patient Education 2019 [employer]. Follow Up Care 04/30/2023 19:30:24 With:ELIZABETH WYMAN DO Address: [facility] [address] [place] [phone] When:5 to 7 days Comments:post-hospitalization follow-up [facility] Clinical Note 05-02-2023 Note Date & Type Note Facility 05-02-2023 Note Discharge Instructions Thank you for allowing [facility] to assist you with your healthcare needs. The following is important discharge information regarding your hospital visit. Your Care Team ELIZABETH WYMAN LISA APRN-CNP Your Diagnosis Acute respiratory failure with hypoxia COVID-19 Hypertension Hypothyroidism Sleep apnea treated with continuous positive airway pressure (CPAP) What to do next Instructions From Your Doctor You had a 1.1 cm nodule in the apex of your right lung. This will require a follow-up CT to better evaluate the nodule. Please discuss this with your PCP. You were admitted due to hypoxia from COVID-19 infection. On arrival to the ED, your oxygen saturations were 88% on room air. They have improved considerably with IV Remdesivir and dexamethasone. Respiratory therapy walked you today and stated that you were able to maintain oxygen saturations above 92% on room air. You do not require oxygen at home. We will discharge you today on the remaining doses of dexamethasone. This is a steroid and helps to reduce inflammation in your lungs. You stated that you already have an inhaler at home. You can use your inhaler as needed if you feel short of breath or wheezy. Please follow-up with your PCP in the next 1-2 weeks for post-hospitalization follow-up. As discussed above, you do have a lung nodule that will require follow-up and your PCP will discuss his recommendation for follow-up. We hope you feel better soon! Follow Up Appointments Follow Up with ELIZABETH WYMAN DO When Within 5 to 7 days Why: post-hospitalization follow-up Where: [facility] [address] [facility] [place] [address]- [phone] The Following Activity and Diet Have Been Ordered for You Discharge Activity - Ordered -- Resume your pre-hospitalization activity, 05/02/23 12:33:00 EST Discharge Diet - Ordered -- No changes were made to your diet during your hospital stay. Please resume your pre hospitalization diet on discharge., 05/02/23 12:33:00 EST Allergies NKA Medications Please ask your primary doctor or pharmacist before taking any other medication not listed, including over the counter drugs, herbal medications, vitamins and or supplements as they may interact with your home medications. What How Much When Instructions Last Dose New dexAMETHasone (dexAMETHasone 6 mg oral tablet) 1 tab(s) by mouth Once a day Duration: 8 Days Pickup at [facility] #[id number] Changed liothyronine 5 Microgram by mouth Two (2) times a day Unchanged amLODIPine (amLODIPine 5 mg oral tablet) 5 Milligram by mouth Once a day Unchanged multivitamin (Vitamin B Complex oral capsule) 1 cap by mouth Every day Unchanged sertraline (Zoloft) 200 Milligram by mouth Once a day Unchanged trifluoperazine (trifluoperazine 1 mg oral tablet) 10 Milligram by mouth Once a day Unchanged vitamin E 1 tab by mouth Once a day Pharmacy Information [id number]: [address], [place] [phone] Please take this list to your next doctor s visit. Bring all medications you take, including over the counter medications, herbals and other supplements with you to your doctor s visit. Patients and families are reminded to discard old lists and to update any records with all medication providers or retail pharmacies. Medication Leaflets dexamethasone (oral) (dex a METH a sone) Dexabliss 11-Day Dose Pack, DexAMETHasone Intensol, Dxevo 11-Day Dose Pack, Hemady, HiDex 6-Day Taper Package, TaperDex 12-Day, TaperDex 6-Day, TaperDex 7-Day, Zcort 7-Day What is the most important information I should know about dexamethasone? You should not use this medicine if you have a fungal infection anywhere in your body. Tell your doctor about all your medical conditions, and all the medicines you are using. There are many other diseases that can be affected by steroid use, and many other medicines that can interact with steroids. What is dexamethasone? There are many brands and forms of dexamethasone available. Not all brands are listed on this leaflet. Dexamethasone is a steroid that prevents the release of substances in the body that cause inflammation. Dexamethasone is used to treat many different conditions such as allergic disorders, skin conditions, ulcerative colitis, arthritis, lupus, psoriasis, or breathing disorders. Dexamethasone may also be used for purposes not listed in this medication guide. What should I discuss with my healthcare provider before taking dexamethasone? You should not use dexamethasone if you are allergic to it, or if you have: a fungal infection anywhere in your body. Tell your doctor if you have ever had: liver disease (such as cirrhosis); kidney disease; a thyroid disorder; malaria; tuberculosis; osteoporosis; a muscle disorder such as myasthenia gravis; diabetes (steroid medicine may increase glucose levels in your blood or urine); glaucoma or cataracts; herpes infection of the eyes; stomach ulcers, ulcerative colitis, diverticulitis, inflammatory bowel disease; depression or mental illness; congestive heart failure; or high blood pressure. Steroid medication affects your immune system. You may get infections more easily. Steroids can also worsen or reactivate an infection you've already had. Tell your doctor about any illness or infection you have had within the past several weeks. It is not known whether this medicine will harm an unborn baby. Tell your doctor if you are . You should not breastfeed while using dexamethasone. How should I take dexamethasone? Follow all directions on your prescription label and read all medication guides or instruction sheets. Your doctor may occasionally change your dose. Use the medicine exactly as directed. Your dose needs may change due to surgery, illness, stress, or a medical emergency. Tell your doctor about any such situation that affects you. This medicine can affect the results of certain medical tests. Tell any doctor who treats you that you are using dexamethasone. Do not stop using dexamethasone suddenly, or you could have unpleasant withdrawal symptoms. Ask your doctor how to safely stop using this medicine. In case of emergency, wear or carry medical identification to let others know you use dexamethasone. Store at room temperature away from moisture and heat. What happens if I miss a dose? Call your doctor for instructions if you miss a dose of dexamethasone. What happens if I overdose? Seek emergency medical attention or call the Poison Help line at . An overdose of dexamethasone is not expected to produce life threatening symptoms. intermediate card tender use of high doses can lead to thinning skin, easy bruising, changes in body fat (especially in your face, neck, back, and waist), increased acne or facial hair, menstrual problems, impotence, or loss of interest in sex. What should I avoid while taking dexamethasone? Avoid being near people who are sick or have infections. Call your doctor for preventive treatment if you are exposed to chickenpox or measles. These conditions can be serious or even fatal in people who are using steroid medicine. Avoid drinking alcohol while you are taking dexamethasone. Do not receive a 'live' vaccine while using dexamethasone. The vaccine may not work as well during this time, and may not fully protect you from disease. Live vaccines include measles, mumps, rubella (MMR), polio, rotavirus, typhoid, yellow fever, varicella (chickenpox), and zoster (shingles). What are the possible side effects of dexamethasone? Get emergency medical help if you have signs of an allergic reaction: hives; difficulty breathing; swelling of your face, lips, tongue, or throat. Call your doctor at once if you have: muscle tightness, weakness, or limp feeling; blurred vision, tunnel vision, eye pain, or seeing halos around lights; shortness of breath (even with mild exertion), swelling, rapid weight gain; severe depression, unusual thoughts or behavior; a seizure (convulsions); bloody or tarry stools, coughing up blood; fast or slow heart rate, weak pulse; pancreatitis--severe pain in your upper stomach spreading to your back, nausea and vomiting; low potassium level--leg cramps, constipation, irregular heartbeats, fluttering in your chest, increased thirst or urination, numbness or tingling; or increased blood pressure--severe headache, blurred vision, pounding in your neck or ears, anxiety, nosebleed. Dexamethasone can affect growth in children. Tell your doctor if your child is not growing at a normal rate while using this medicine. Common side effects may include: fluid retention (swelling in your hands or ankles); increased appetite; mood changes, trouble sleeping; skin rash, bruising or discoloration; acne, increased sweating, increased hair growth; headache, dizziness; nausea, vomiting, upset stomach; changes in your menstrual periods; or changes in the shape or location of body fat (especially in your arms, legs, face, neck, breasts, and waist). This is not a complete list of side effects and others may occur. Call your doctor for medical advice about side effects. You may report side effects to FDA at 4-537-AFS-7116. What other drugs will affect dexamethasone? Sometimes it is not safe to use certain medications at the same time. Some drugs can affect your blood levels of other drugs you take, which may increase side effects or make the medications less effective. Tell your doctor about all your current medicines. Many drugs can affect dexamethasone, especially: an antibiotic or antifungal medicine; control pills or hormone replacement therapy; insulin or diabetes medications you take by mouth; medicine to treat dementia or Parkinson's disease; a blood thinner--warfarin, Coumadin, Jantoven; or NSAIDs (nonsteroidal anti-inflammatory drugs)--aspirin, ibuprofen (Advil, Motrin), naproxen (Aleve), celecoxib, diclofenac, indomethacin, meloxicam, and others. This list is not complete and many other drugs may affect dexamethasone. This includes prescription and qfkf-ngy-qjzrmyt medicines, vitamins, and herbal products. Not all possible drug interactions are listed here. Where can I get more information? Your pharmacist can provide more information about dexamethasone. Remember, keep this and all other medicines out of the reach of children, never share your medicines with others, and use this medication only for the indication prescribed. Every effort has been made to ensure that the information provided by [employer]. ('[employer]') is accurate, up-to-date, and complete, but no guarantee is made to that effect. Drug information contained herein may be time sensitive. [employer] information has been compiled for use by healthcare practitioners and consumers in the [place] and therefore [employer] does not warrant that uses outside of the [place] are appropriate, unless specifically indicated otherwise. [employer] drug information does not endorse drugs, diagnose patients or recommend therapy. [employer] drug information is an informational resource designed to assist licensed healthcare practitioners in caring for their patients and/or to serve consumers viewing this service as a supplement to, and not a substitute for, the expertise, skill, knowledge and judgment of healthcare practitioners. The absence of a warning for a given drug or drug combination in no way should be construed to indicate that the drug or drug combination is safe, effective or appropriate for any given patient. [employer] does not assume any responsibility for any aspect of healthcare administered with the aid of information [employer] provides. The information contained herein is not intended to cover all possible uses, directions, precautions, warnings, drug interactions, allergic reactions, or adverse effects. If you have questions about the drugs you are taking, check with your doctor, nurse or pharmacist. Copyright [employer]. Version: 10.. Revision Date: 11/05/2022. Education Materials COVID-19 COVID-19 is a respiratory infection that is caused by a virus called severe acute respiratory syndrome coronavirus 2 (SARS-CoV-2). The disease is also known as coronavirus disease or novel coronavirus. In some people, the virus may not cause any symptoms. In others, it may cause a serious infection. The infection can get worse quickly and can lead to complications, such as: Pneumonia, or infection of the lungs. Acute respiratory distress syndrome or ARDS. This is fluid build-up in the lungs. Acute respiratory failure. This is a condition in which there is not enough oxygen passing from the lungs to the body. Sepsis or septic shock. This is a serious bodily reaction to an infection. Blood clotting problems. Secondary infections due to bacteria or fungus. The virus that causes COVID-19 is contagious. This means that it can spread from person to person through droplets from coughs and sneezes (respiratory secretions). What are the causes? This illness is caused by a virus. You may catch the virus by: Breathing in droplets from an infected person's cough or sneeze. Touching something, like a table or a doorknob, that was exposed to the virus (contaminated) and then touching your mouth, nose, or eyes. What increases the risk? Risk for infection You are more likely to be infected with this virus if you: Live in or travel to an area with a COVID-19 outbreak. Come in contact with a sick person who recently traveled to an area with a COVID-19 outbreak. Provide care for or live with a person who is infected with COVID-19. Risk for serious illness You are more likely to become seriously ill from the virus if you: Are 65 years of age or older. Have a long-term disease that lowers your body's ability to fight infection (immunocompromised). Live in a residential or long-term care facility. Have a long-term (chronic) disease such as: ? Chronic lung disease, including chronic obstructive pulmonary disease or asthma ? Heart disease. ? Diabetes. ? Chronic kidney disease. ? Liver disease. Are obese. What are the signs or symptoms? Symptoms of this condition can range from mild to severe. Symptoms may appear any time from 2 to 14 days after being exposed to the virus. They include: A fever. A cough. Difficulty breathing. Chills. Muscle pains. A sore throat. Loss of taste or smell. Some people may also have stomach problems, such as nausea, vomiting, or diarrhea. Other people may not have any symptoms of COVID-19. How is this diagnosed? This condition may be diagnosed based on: Your signs and symptoms, especially if: ? You live in an area with a COVID-19 outbreak. ? You recently traveled to or from an area where the virus is common. ? You provide care for or live with a person who was diagnosed with COVID-19. A physical exam. Lab tests, which may include: ? A nasal swab to take a sample of fluid from your nose. ? A throat swab to take a sample of fluid from your throat. ? A sample of mucus from your lungs (sputum). ? Blood tests. Imaging tests, which may include, X-rays, CT scan, or ultrasound. How is this treated? At present, there is no medicine to treat COVID-19. Medicines that treat other diseases are being used on a trial basis to see if they are effective against COVID-19. Your health care provider will talk with you about ways to treat your symptoms. For most people, the infection is mild and can be managed at home with rest, fluids, and srwd-qql-hfquxon medicines. Treatment for a serious infection usually takes places in a hospital intensive care unit (ICU). It may include one or more of the following treatments. These treatments are given until your symptoms improve. Receiving fluids and medicines through an IV. Supplemental oxygen. Extra oxygen is given through a tube in the nose, a face mask, or a lane. Positioning you to lie on your stomach (prone position). This makes it easier for oxygen to get into the lungs. Continuous positive airway pressure (CPAP) or bi-level positive airway pressure (BPAP) machine. This treatment uses mild air pressure to keep the airways open. A tube that is connected to a motor delivers oxygen to the body. Ventilator. This treatment moves air into and out of the lungs by using a tube that is placed in your windpipe. Tracheostomy. This is a procedure to create a hole in the neck so that a breathing tube can be inserted. Extracorporeal membrane oxygenation (ECMO). This procedure gives the lungs a chance to recover by taking over the functions of the heart and lungs. It supplies oxygen to the body and removes carbon dioxide. Follow these instructions at home: Lifestyle If you are sick, stay home except to get medical care. Your health care provider will tell you how long to stay home. Call your health care provider before you go for medical care. Rest at home as told by your health care provider. Do not use any products that contain nicotine or tobacco, such as cigarettes, e-cigarettes, and chewing tobacco. If you need help quitting, ask your health care provider. Return to your normal activities as told by your health care provider. Ask your health care provider what activities are safe for you. General instructions Take vqyk-uaa-kbakbqi and prescription medicines only as told by your health care provider. Drink enough fluid to keep your urine pale yellow. Keep all follow-up visits as told by your health care provider. This is important. How is this prevented? There is no vaccine to help prevent COVID-19 infection. However, there are steps you can take to protect yourself and others from this virus. To protect yourself: Do not travel to areas where COVID-19 is a risk. The areas where COVID-19 is reported change often. To identify high-risk areas and travel restrictions, check the CDC travel website: wwwnc.cdc.gov/travel/notices If you live in, or must travel to, an area where COVID-19 is a risk, take precautions to avoid infection. ? Stay away from people who are sick. ? Wash your hands often with soap and water for 20 seconds. If soap and water are not available, use an alcohol-based hand director women. ? Avoid touching your mouth, face, eyes, or nose. ? Avoid going out in public, follow guidance from your state and local health authorities. ? If you must go out in public, wear a cloth face covering or face mask. ? Disinfect objects and surfaces that are frequently touched every day. This may include: ? Counters and tables. ? Doorknobs and light switches. ? Sinks and faucets. ? Electronics, such as phones, remote controls, keyboards, computers, and tablets. To protect others: If you have symptoms of COVID-19, take steps to prevent the virus from spreading to others. If you think you have a COVID-19 infection, contact your health care provider right away. Tell your health care team that you think you may have a COVID-19 infection. Stay home. Leave your house only to seek medical care. Do not use public transport. Do not travel while you are sick. Wash your hands often with soap and water for 20 seconds. If soap and water are not available, use alcohol-based hand director women. Stay away from other members of your household. Let healthy household members care for children and pets, if possible. If you have to care for children or pets, wash your hands often and wear a mask. If possible, stay in your own room, separate from others. Use a different bathroom. Make sure that all people in your household wash their hands well and often. Cough or sneeze into a tissue or your sleeve or elbow. Do not cough or sneeze into your hand or into the air. Wear a cloth face covering or face mask. Where to find more information Centers for Disease Control and Prevention: www.cdc.gov/coronavirus/2019-ncov/inde x.html World Health Organization: www.who.int/health-topics/coronavirus Contact a health care provider if: You live in or have traveled to an area where COVID-19 is a risk and you have symptoms of the infection. You have had contact with someone who has COVID-19 and you have symptoms of the infection. Get help right away if: You have trouble breathing. You have pain or pressure in your chest. You have confusion. You have bluish lips and fingernails. You have difficulty waking from sleep. You have symptoms that get worse. These symptoms may represent a serious problem that is an emergency. Do not wait to see if the symptoms will go away. Get medical help right away. Call your local emergency services (911 in the [place] Do not drive yourself to the hospital. Let the emergency medical personnel know if you think you have COVID-19. Summary COVID-19 is a respiratory infection that is caused by a virus. It is also known as coronavirus disease or novel coronavirus. It can cause serious infections, such as pneumonia, acute respiratory distress syndrome, acute respiratory failure, or sepsis. The virus that causes COVID-19 is contagious. This means that it can spread from person to person through droplets from coughs and sneezes. You are more likely to develop a serious illness if you are 65 years of age or older, have a weak immunity, live in a residential, or have chronic disease. There is no medicine to treat COVID-19. Your health care provider will talk with you about ways to treat your symptoms. Take steps to protect yourself and others from infection. Wash your hands often and disinfect objects and surfaces that are frequently touched every day. Stay away from people who are sick and wear a mask if you are sick. This information is not intended to replace advice given to you by your health care provider. Make sure you discuss any questions you have with your health care provider. Document Released: 04/26/2019 Document Revised: 08/16/2019 Document Reviewed: 04/26/2019 [email or web address] Patient Education 2019 [employer] Additional Information VACCINATE! IT SAVES LIVES! Members of the community who have not yet received the COVID-19 vaccine and would like to receive it can visit one of [facility] vaccine clinics. There are many vaccine clinic locations within the [facility]. For locations and available times, please visit [email or web address] It is important to note that some COVID mobile vaccine clinics are held outdoors and may be canceled in rainy or stormy conditions. To learn more about pediatric vaccinations (ages 5-11), we invite you to visit the [facility] webpage. [email or web address]/pages/2 638-Ukzrz-Cfsevcpnxxr-Frequently-Asked -Questions.html To learn more about the COVID-19 vaccine, we invite you to visit the CDC website for a list of frequently asked questions.https://www.cdc.gov/coronavi elisha/2019-ncov/vaccines/faq.html [facility] Patient Portal Access Instructions: Stay connected with your healthcare team and access your personal medical information anytime with the [facility] Patient Portal. Please follow the directions below to create your [facility] account: 1.Access the email account you provided upon registration to the hospital/physician office.2.Look for an invitation email from [facility].3.Open the email and access the invitation link: Accept Invitation to [facility].4.Fill in the required plata to create your account. To access your account, visit [email or web address]. Click the blue button labeled Access Patient Portal and then log in with the username and password that you created in the steps above. You will be able to view your test results, lab results, a summary of your visits, upcoming appointments and more. There is also a convenient messaging option where you can send secure messages to your provider. In addition, you will have the ability to download any documents or summaries to your computer and/or send the information securely to a physician. Remember that your healthcare information is confidential, so carefully consider who you will allow to register on the [facility] Patient Portal for access to your information. You can also access the [facility] Patient Portal on the [facility] willian. Simply click on Patient Portal and then log into your account. If you would like to receive a full copy of your medical records, please contact the [facility] Medical Records Department by calling [phone], Tuesday through Tuesday between 8 a.m. and 4:30 p.m. HOW TO SAFELY DISPOSE OF PRESCRIPTION MEDICATIONS Please use one of the following methods to safely dispose of your unused medications. 1.Use a drug disposal kit: the drug disposal pouch allows you to safely discard your old and unused drugs. Ask your nurse to give you one when you are discharged.2.Visit a local take-back location: Many local pharmacies and police departments have programs that collect old and unwanted prescription drugs. Call your local pharmacy or go to http://[employer].medidametrics/4B4Kw1f to find one close to you.3.Make use of household items: Use cat litter or old coffee grounds to dispose medications if other options are not available. Mix your drugs with these household products, seal them in an airtight container and throw it into the garbage. Call [facility]: [phone] to be sure your drugs can be disposed of in this way. Some medicines may require a different approach.4.Never flush your medications down the toilet. IF YOU HAVE BEEN PRESCRIBED AN OPIOID FOR PAIN If you have been prescribed an opioid (such as hydrocodone, oxycodone or morphine), it is critical to understand the possible side effects and risks of opioid pain medications. Even when taken as directed, opioids can have several side effects including: Tolerance, meaning you might need to take more of a medication for the same pain relief. Nausea, vomiting and/or constipation. Sleepiness, dizziness, dry mouth, confusion, depression or itching. Physical dependence, meaning you have withdrawal symptoms when a medication is stopped, can develop within a few days. KNOW YOUR RESPONSIBILITIES It is important to know exactly how much and how often to take the opioid pain medications you are prescribed. Never take opioids in higher amounts or more often than prescribed. Do not combine opioids with alcohol or other drugs that cause drowsiness, such as benzodiazepines, also known as benzos, including diazepam and alprazolam, muscle relaxants or sleep aids. Never sell or share prescription opioids. This is illegal. Store opioids in a secure place and out of reach of others (including children, family, friends and visitors). The last page of this document has been signed and retained as a CHART COPY. Signatures Patient Education Materials COVID-19 Medication Leaflets dexamethasone (oral) My discharge plan and instructions have been reviewed and explained to me and I,MARIO HALEY understand my current condition and have read and understand these discharge instructions. I have received a written copy of the plan/instructions. If I have questions, I am aware that I should contact my doctor. 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 Evaluation + Plan note 05-01-2023 Note Date & Type Note Facility 1. COVID-19 Acute, new onset. Continue Remdesivir IV daily, day 2/3. Continue dexamethasone 6 mg PO daily, day 210. Continue duoneb aerosols as needed and scheduled. Continue supplemental oxygen as needed to maintain oxygen saturations above 92%. Wean oxygen as able. Repeat CBC and BMP in the am. 2. Acute respiratory failure with hypoxia Acute, new onset, secondary to COVID-19. Plan as above. 3. Hypertension Chronic. Continue current antihypertensives. SBP goal of 140 or less. 4. Hypothyroidism Chronic. Continue levothyroxine at current dose. 5. Sleep apnea treated with continuous positive airway pressure (CPAP) Chronic. CPAP as at home. DVT prophylaxis with Lovenox sc. Code status: Full Code. Labs, diagnostic test and progress notes reviewed as noted in HPI. Plan of care discussed with patient. All questions answered. Patient verbalizes understanding and is agreeable with plan of care. This case was discussed with collaborating physician, Dr. Armen Celaya. 75 minutes spent reviewing past diagnostic tests, reviewing lab results, vital sign trends, medical history, reviewing medications and ordering home medications, examining patient, discussed plan of care with nursing, collaborating with physician, and documenting in chart. [facility] Clinical Note 05-01-2023 Note Date & Type Note Facility 05-01-2023 Note Date of Service 05/01/2023 Chief Complaint SOB for awhile but got worse today around 1530 today. Pt states she is hvaing bilateral chest pain, just started wearing a CPAP states the mask does't fit right and she can't wear it all night, states when she takes it off she feels more SOB. History of Present Illness Patient is a 68-year-old female, who follows with Dr. Elizabeth Wyman with a past medical history significant for hypertension, hypothyroidism, anxiety and depression, presented to [facility] emergency department with the chief complaint of shortness of breath. Patient states that she felt fine yesterday morning, however, just after noon developed chills and shortness of breath. The shortness of breath became progressively worse throughout the day. She then developed bilateral chest pain. Patient points to her upper lungs bilaterally as the location of this discomfort. Patient reports that she just started wearing a CPAP and the mask does not fit right. She is unable to wear it all night as she is supposed to so thought the shortness of breath may have been from that. However, patient watches her grandchild and reports that the child was sick earlier last week. Patient denies any fever, cough, abdominal pain, nausea or dysuria. In the emergency department, chest x-ray revealed 1.1 cm over the right lung apex which is indeterminate with radiograph. Recommended CT of the chest to better evaluate. EKG demonstrated sinus tachycardia. CBC was unremarkable. BMP significant for glucose 147. D-dimer negative. Urinalysis unremarkable. COVID-19 positive. RSV, Flu A and B negative. Patient was administered 1 liter of NS, 6 mg dexamethasone IV and 200 mg Remdesivir IV in the ED. Patient was noted to be 88% on room air on arrival to the ED. The case was discussed with the ED physician who recommended admission for treatment of COVID-19 with hypoxia. Patient was transferred to telemetry for further evaluation and treatment. We will continue Remdesivir 100 mg IV daily for 2 days and dexamethasone 6 mg PO daily for 10 days. We will continue duoneb aerosols as needed and scheduled. We will continue supplemental oxygen as needed to maintain oxygen saturations above 90%. Wean oxygen as able. Repeat CMP daily. Patient seen and evaluated this morning while resting in bed. She states that she is feeling better already. She continues on 1-2L of oxygen. She is agreeable with the current plan of care. We will continue to wean patient from oxygen. Patient is agreeable with this plan of care. On exam, lungs are clear but diminished. All questions answered. Review of Systems Review of Systems: Reviewed in detail, including general health, HEENT, cardiovascular, respiratory, gastrointestinal, genitourinary, endocrine, musculoskeletal, neurologic, vascular, skin, and psychiatric. All are negative except for those listed in the History of Present Illness. Physical Exam Vitals and Measurements T: 36.9 C (Oral) TMIN: 36.7 C (Oral) TMAX: 37.6 C (Oral) HR: 86(Monitored) RR: 20 BP: 98/56 SpO2: 93% HT: 149.9 cm WT: 106.7 kg BMI: 47.62 Weight Current Weight Dosing Weight: 107 kg (04/30/23) Current Weight: 106.7 kg (05/01/23) Dosing Weight: 109.1 kg (04/30/23) General: No acute distress. Patient is alert, chronically ill-appearing. Skin: No rash. Skin is warm, dry and intact. HEENT: Head is normocephalic, atraumatic. Pupils are equal, round and reactive. Neck: Supple. No lymphadenopathy, thyromegaly. Lungs: Bilaterally clear but diminished without crepitation or wheeze. Unlabored. Heart: Heart is regular rhythm, S1, S2. No murmurs, gallops or rubs. Abdomen: Abdomen is soft, nontender, obese. Bowels sounds present in all quadrants. Extremities: No clubbing, cyanosis, or edema. Peripheral pulses palpable. No calf tenderness. Neurological: Patient is awake and alert to person, place and time. Following simple commands, moving all extremities. Lab Results 05/01 05:23 WBC: 4.9 Hgb: 13.3 Hct: 38.9 Platelet: 172 Neutrophil %: 87.1 H Glucose Level: 182 H Sodium Level: 144 Potassium Level: 4.2 BUN: 13 Creatinine Lvl (s): 0.77 04/30 20:13 WBC: 6.9 Hgb: 14.7 Hct: 42.7 Platelet: 171 Neutrophil %: 81.7 H Glucose Level: 147 H Sodium Level: 137 Potassium Level: 4.1 BUN: 15 Creatinine Lvl (s): 0.91 Imaging Results and Diagnostics XR Chest 2 Views Result Date: April 30, 2023 Verified By: LIAM STACK MD CLINICAL STATEMENT: IMPRESSION: 1.1 cm nodular focus over the right lung apex is indeterminate on radiograph. Further evaluation with CT chest would be helpful. Question few age indeterminate compression deformities within the thoracic spine. Osseous detail is limited. Correlate with clinical findings. Further imaging can be considered as clinically indicated. I have personally reviewed the images of this examination and agree with the resident's findings and interpretation. Assessment/Plan 1. COVID-19 Acute, new onset. Continue Remdesivir IV daily, day 2/3. Continue dexamethasone 6 mg PO daily, day 10. Continue duoneb aerosols as needed and scheduled. Continue supplemental oxygen as needed to maintain oxygen saturations above 92%. Wean oxygen as able. Repeat CBC and BMP in the am. 2. Acute respiratory failure with hypoxia Acute, new onset, secondary to COVID-19. Plan as above. 3. Hypertension Chronic. Continue current antihypertensives. SBP goal of 140 or less. 4. Hypothyroidism Chronic. Continue levothyroxine at current dose. 5. Sleep apnea treated with continuous positive airway pressure (CPAP) Chronic. CPAP as at home. DVT prophylaxis with Lovenox sc. Code status: Full Code. Labs, diagnostic test and progress notes reviewed as noted in HPI. Plan of care discussed with patient. All questions answered. Patient verbalizes understanding and is agreeable with plan of care. This case was discussed with collaborating physician, Dr. Armen Celaya. 75 minutes spent reviewing past diagnostic tests, reviewing lab results, vital sign trends, medical history, reviewing medications and ordering home medications, examining patient, discussed plan of care with nursing, collaborating with physician, and documenting in chart. Problem List/Past Medical History Ongoing No qualifying data Historical No qualifying data Procedure/Surgical History Cholecystectomy Bone spur Hemorrhoidectomy Medications Home Medications (6) Active amLODIPine 5 mg oral tablet 5 mg, Oral, qDay liothyronine 5 mcg, Oral, BID trifluoperazine 1 mg oral tablet 10 mg, Oral, qDay Vitamin B Complex oral capsule 1 cap(s), Oral, Daily vitamin E 1 tab, Oral, qDay Zoloft 200 mg, Oral, qDay Allergies NKA Social History Smoking Status - 03/01/2017 Never smoker Alcohol Use: Current. Type: Wine, Liquor. Frequency: 1-2 times per month. Previous treatment: None. Do you ever drink more than intended: No. Has anyone been hurt or at risk by your drinking: No. Ready to change: No. Concerns about alcohol use in household: No., 04/30/2023 Home/Environment Living situation: Home/Independent. Safe place to go: Yes. Domestic Concerns: None. Lives In: Multilevel home. Current Home Treatments CPAP. Professional Skilled Services or Special Community Resources None. Marital Status: ., 04/30/2023 Nutrition/Health Type of diet: Regular. Caffeine intake amount: 2-3 cups coffee per day. Appetite Good. Eating Difficulties None., 04/30/2023 Sexual Self described orientation: Straight or heterosexual. Gender Identity: Identifies as female., 04/30/2023 Tobacco Nicotine Use: Never (less than 100 in lifetime). Smokeless Tobacco Use: Never., 04/30/2023 Family History Heart: Mother and Father. Immunizations SARS-CoV-2 (COVID-19) mRNA-1273 vaccine: 0.5 unknown unit (06/13/20) tetanus/diphth/pertuss (Tdap) adult/adol: 0 unknown unit (12/18/15) zoster vaccine live: 0 unknown unit (06/26/15) zoster vaccine, inactivated: 1 unknown unit (12/04/19) zoster vaccine, inactivated: 1 unknown unit (09/28/19) Code Status Code Status - Ordered -- 04/30/23 22:08:00 EST, Full Code, Constant Order Digitally Signed by GINNY HERNANDEZ on 05/01/2023 02:[address] [facility] Clinical Note 04-30-2023 Note Date & Type Note Facility 04-30-2023 Note ORIGINAL EXAMINATION: TWO XRAY VIEWS OF THE CHEST04/30/2023 8:41 pm COMPARISON: None. HISTORY: ORDERING SYSTEM PROVIDED HISTORY: Reason for Exam: SOB/Cough/Fever FINDINGS: The cardiomediastinal silhouette is unremarkable. There is no pulmonary vascular congestion. There is no large focal consolidation. 1.1 cm nodular focus projecting over the right lung apex. No pleural effusion. No pneumothorax. Elevation of the right hemidiaphragm. There may be a few levels of vertebral body height loss within the thoracic spine. Osseous detail is limited. IMPRESSION: 1.1 cm nodular focus over the right lung apex is indeterminate on radiograph. Further evaluation with CT chest would be helpful. Question few age indeterminate compression deformities within the thoracic spine. Osseous detail is limited. Correlate with clinical findings. Further imaging can be considered as clinically indicated. I have personally reviewed the images of this examination and agree with the resident's findings and interpretation. Interpreted by: Liam Stack Preliminary Report By: Elias Landry Electronically signed By Liam Stack Dictated Date: 04/30/2023 8:45:34 PM Prelim Date: 04/30/2023 8:50:03 PM Sign Date: 04/30/2023 8:52:26 PM Ordering Provider: JENN KIM [facility] Nurse Discharge summary 04-30-2023 Note Date & Type Note Facility 04-30-2023 Nurse Discharge summary Pt walked to room 7 from triage, pulse ox was 90% after walking. pt put on 3L [place] o2 and recovered to 94%. Pt denies cardiac history, states she takes BP meds. denies stents, states she has cardiac family history in mom and dad [facility] Clinical Note 04-30-2023 Note Date & Type Note Facility 04-30-2023 Note Sinus tachycardia LAE, consider biatrial enlargement Low voltage, precordial leads Minimal ST elevation, lateral leads Electronic Signature: JENN KIM MD 04/30/2023 20:31:19 [facility] Hospital course Narrative Note Date & Type Note Facility Hospital course Narrative No data available for this section [facility] Summary Purpose Family History No Family History Records Found No data available for this section Advance Directives No Advanced Directives Records Found Additional Source Comments INFORMATION SOURCE (unrecogn ized section and content) Patient Care team informatio n (unrecognized section and content) Care Team Personnel Name: ELIZABETH WYMAN DO Member Role: Primary Care Physician Address: Address: [facility] [address] [place] [address] Care Team Related Persons Name: CORAL HALEY Shae Address: Home [address] [place] [address] FOR RECORDS PERTAINING TO PATIENTS WHO ARE [...] BE BASED ON THE PRIMARY CLINICAL RECORDS. [facility] [employer] [facility]. provides no warranty or guarantee of the accuracy or completeness of information in this document.
== END | disposition home or self-care (01) ==
LOC: SL 13:50
PROVIDERS: PCP Family Medicine; Visit Provider Nurse Practitioner Acute Care
DX: G47.33 Obstructive sleep apnea (adult) (pediatric) (principal)
CPT/HCPCS: 98960; G0463

== ENCOUNTER → 2023-06-06 | Outpatient (CLI) | payer MEDICARE, OTHER, SELFPAY ==
--- OUTSIDE RECORDS SUMMARY | 2023-06-06 17:46 | XMS RPT_ITS | CCD ---
Author Name Unknown Address [address] [place] [address] Organization [facility] Care Team Providers Care Shear Setter Name Role Phone ELIZABETH WYMAN DO Primary Care Physician BENJAMIN GOODSON Admitting Unavailab le ELIZABETH WYMAN DO Primary Care Unavailable DR ARMEN CELAYA DO Attending Unavailable Medications Current Medications Medication Drug Class(es) Dates [...] 0 Refill(s), 05/11/23 9:00:00 AM EST, Pharmacy: [id number], 149.9, cm, 04/30/23 23:12:00 EST, Height, kg, [...] 13:30-0500 Body temperature 97.34 [degF] BENJAMIN THAKUR [facility] 05-02-2023 13:30-0500 Diastolic Blood Pressure Non-Invasive 78 mm[Hg] BENJAMIN THAKUR [facility] 05-02-2023 13:30-0500 Heart rate 75 /min BENJAMIN WHITE FIRER LOCOMOTIVE-HOME HEALTH NURSE LICENSED PRACTICAL [facility] 05-02-2023 13:30-0500 Reason For Taking VItal Signs BENJAMIN WHITE FIRER LOCOMOTIVE-HOME HEALTH NURSE LICENSED PRACTICAL [facility] 05-02-2023 13:30-0500 Respiratory rate 18 /min BENJAMIN WHITE FIRER LOCOMOTIVE-HOME HEALTH NURSE LICENSED PRACTICAL [facility] 05-02-2023 13:30-0500 Systolic Blood Pressure Non-Invasive 132 mm[Hg] BENJAMIN WHITE FIRER LOCOMOTIVE-HOME HEALTH NURSE LICENSED PRACTICAL [facility] 05-02-2023 08:45-0500 Body temperature 98.78 [degF] BENJAMIN WHITE FIRER LOCOMOTIVE-HOME HEALTH NURSE LICENSED PRACTICAL [facility] 05-02-2023 08:45-0500 Diastolic Blood Pressure Non-Invasive 73 mm[Hg] BENJAMIN WHITE FIRER LOCOMOTIVE-HOME HEALTH NURSE LICENSED PRACTICAL [facility] 05-02-2023 08:45-0500 Heart rate 66 /min BENJAMIN WHITE FIRER LOCOMOTIVE-HOME HEALTH NURSE LICENSED PRACTICAL [facility] 05-02-2023 08:45-0500 Reason For Taking VItal Signs BENJAMIN WHITE FIRER LOCOMOTIVE-HOME HEALTH NURSE LICENSED PRACTICAL [facility] 05-02-2023 08:45-0500 Respiratory rate 20 /min BENJAMIN WHITE FIRER LOCOMOTIVE-HOME HEALTH NURSE LICENSED PRACTICAL [facility] 05-02-2023 08:45-0500 Systolic Blood Pressure Non-Invasive 124 mm[Hg] BENJAMIN WHITE FIRER LOCOMOTIVE-HOME HEALTH NURSE LICENSED PRACTICAL [facility] 05-02-2023 03:53-0500 Respiratory rate 18 /min BENJAMIN WHITE FIRER LOCOMOTIVE-HOME HEALTH NURSE LICENSED PRACTICAL [facility] 05-02-2023 03:37-0500 Body temperature 98.06 [degF] BENJAMIN WHITE FIRER LOCOMOTIVE-HOME HEALTH NURSE LICENSED PRACTICAL [facility] 05-02-2023 03:37-0500 Diastolic Blood Pressure Non-Invasive 68 mm[Hg] BENJAMIN WHITE FIRER LOCOMOTIVE-HOME HEALTH NURSE LICENSED PRACTICAL [facility] 05-02-2023 03:37-0500 Heart rate 63 /min BENJAMIN WHITE FIRER LOCOMOTIVE-HOME HEALTH NURSE LICENSED PRACTICAL [facility] 05-02-2023 03:37-0500 Reason For Taking VItal Signs BENJAMIN WHITE FIRER LOCOMOTIVE-HOME HEALTH NURSE LICENSED PRACTICAL [facility] 05-02-2023 03:37-0500 Systolic Blood Pressure Non-Invasive 138 mm[Hg] BENJAMIN WHITE FIRER LOCOMOTIVE-HOME HEALTH NURSE LICENSED PRACTICAL [facility] 05-01-2023 22:59-0500 Heart rate 73 /min BENJAMIN WHITE FIRER LOCOMOTIVE-HOME HEALTH NURSE LICENSED PRACTICAL [facility] 05-01-2023 19:00-0500 Heart rate 77 /min BENJAMIN WHITE FIRER LOCOMOTIVE-HOME HEALTH NURSE LICENSED PRACTICAL [facility] 05-01-2023 15:47-0500 Mean blood pressure 70 mm[Hg] BENJAMIN WHITE FIRER LOCOMOTIVE-HOME HEALTH NURSE LICENSED PRACTICAL [facility] 05-01-2023 12:00-0500 Heart rate 70 /min BENJAMIN WHITE FIRER LOCOMOTIVE-HOME HEALTH NURSE LICENSED PRACTICAL [facility] 05-01-2023 09:16-0500 Heart rate 63 /min BENJAMIN WHITE FIRER LOCOMOTIVE-HOME HEALTH NURSE LICENSED PRACTICAL [facility] 05-01-2023 05:15-0500 Mean blood pressure 70 mm[Hg] BENJAMIN WHITE FIRER LOCOMOTIVE-HOME HEALTH NURSE LICENSED PRACTICAL [facility] 04-30-2023 23:12-0500 Body height 149.9 cm BENJAMIN WHITE FIRER LOCOMOTIVE-HOME HEALTH NURSE LICENSED PRACTICAL [facility] 04-30-2023 23:12-0500 Body weight 107 kg BENJAMIN WHITE FIRER LOCOMOTIVE-HOME HEALTH NURSE LICENSED PRACTICAL [facility] 04-30-2023 23:12-0500 Body weight 47.62 kg/m2 BENJAMIN WHITE FIRER LOCOMOTIVE-HOME HEALTH NURSE LICENSED PRACTICAL [facility] 04-30-2023 22:40-0500 Mean blood pressure 68 mm[Hg] BENJAMIN WHITE FIRER LOCOMOTIVE-HOME HEALTH NURSE LICENSED PRACTICAL [facility] 04-30-2023 21:50-0500 Heart rate 91 /min BENJAMIN WHITE FIRER LOCOMOTIVE-HOME HEALTH NURSE LICENSED PRACTICAL [facility] 04-30-2023 19:42-0500 Body height 149.9 cm BENJAMIN WHITE FIRER LOCOMOTIVE-HOME HEALTH NURSE LICENSED PRACTICAL [facility] 04-30-2023 19:42-0500 Body weight 109.1 kg BENJAMIN WHITE FIRER LOCOMOTIVE-HOME HEALTH NURSE LICENSED PRACTICAL [facility] Encounters Encounter Date Encounter Type Care Provider Facility Start: 04-30-2023 End: 05-02-2023 Evaluation and management of inpatient BENJAMIN WHITE APRN-HOME HEALTH NURSE LICENSED PRACTICAL Facility:[facility] Start: 04-30-2023 End: 05-02-2023 Evaluation and management of inpatient BENJAMIN WHITE FIRER LOCOMOTIVE-HOME HEALTH NURSE LICENSED PRACTICAL [facility] Procedures Date Procedure Procedure Detail Performing Clinician Cholecystectomy BENJAMIN WHITE APRN-HOME HEALTH NURSE LICENSED PRACTICAL Hemorrhoidectomy BENJAMIN Jenkins FIRER LOCOMOTIVE-HOME HEALTH NURSE LICENSED PRACTICAL Osteophyte of bone (disorder) BENJAMIN WHITE FIRER LOCOMOTIVE-HOME HEALTH NURSE LICENSED PRACTICAL Immunizations Immunization Date Immunization Notes Care Provider Reanna bruno 06-13-2020 SARS-CoV-2 (COVID-19 ) [id number] vaccine BENJAMIN CHRISTOPHER FIRER LOCOMOTIVE-HOME HEALTH NURSE LICENSED PRACTICAL [facility] 01-22-2020 influenza virus vaccine, unspecified formulation BENJAMIN WHITE FIRER LOCOMOTIVE-[employer] [facility] 12-04-2019 zoster vaccine recombinant BENJAMIN WHITE FIRER LOCOMOTIVE-[employer] [facility] 09-28-2019 zoster vaccine recombinant BENJAMIN CHRISTOPHER FIRER LOCOMOTIVE-[employer] [facility] 12-18-2015 tetanus toxoid, redu hansel diphtheria toxoid, and acellular pertussis vaccine, adsorbed BENJAMIN WHITE FIRER LOCOMOTIVE-[employer] [facility] 06-26-2015 zoster vaccine, live BENJAMIN WHITE FIRER LOCOMOTIVE-[employer] [facility] 05-01-2013 influenza virus vaccine, unspecified formulation BENJAMIN CHRISTOPHER FIRER LOCOMOTIVE-[employer] [facility] Payers Date Payer Category Payer Medicare [id number] 2023 Private Health Insurance [id number] 1955 Unknown [id number] Social History Date Type Detail Facility Start: 04-30-2023 Tobacco smoking status Never s moked tobacco (finding) [facility] Tobacco smoking status Never [facility] Sex Assigned At Sex [facility] Functional Status Date Assessment Result Facility 05-02-2023 Functional Status Nurse Safety C hecks q2hrs Performed 7am-3pm [facility] 05-02-2023 Functional Status Sequential Com pression Device bilateral knee high applied/on [facility] 05-02-2023 Functional Status Door open, Non-Slip footwear, Room check performed [facility] 05-02-2023 Functional Status [facility] 05-02-2023 Functional Status [facility] 05-01-2023 Functional Status [facility] 05-01-2023 Functional Status Multilevel home [facility] 05-01-2023 Functional Status Positioning Repositions self [facility] 04-30-2023 Functional Status [facility] 04-30-2023 Functional Status Independent [facility] Mental Status Date Assessment Result Facility 05-02-2023 Mental Status Oriented x 4 [facility] 05-01-2023 Mental Status [facility] Clinical Notes 04-30-2023 to 05-06-2023 Note Date & Type Note Facility 05-06-2023 Note . MICRO - Microbiology PROCEDURE: Blood Culture (bacterial) [*1] SOURCE: Blood BODY SITE: COLLECTED DATE/TIME: 05/01/2023 00:34 EST RECEIVED DATE/TIME: 05/01/2023 16:22 EST START DATE/TIME: 05/01/2023 16:22 EST FREE TEXT SOURCE: FINAL REPORTS Final Report [] Verified Date/Time/Personnel: 05/06/2023 16:59 EST Blood Culture: No Growth at 5 days. PRELIMINARY REPORTS Preliminary Report [] Verified Date/Time/Personnel: 05/01/2023 16:59 EST Culture has been received in lab and is no growth to date. Routine cultures are held for 5 days. Performing Locations *1: This test was performed at: [facility], [address] [place] [address], [address] , [facility] ([place]) 05-06-2023 Note . MICRO - Microbiology PROCEDURE: Blood Culture (bacterial) [*1] SOURCE: Blood BODY SITE: COLLECTED DATE/TIME: 05/01/2023 00:34 EST RECEIVED DATE/TIME: 05/01/2023 16:22 EST START DATE/TIME: 05/01/2023 16:22 EST FREE TEXT SOURCE: FINAL REPORTS Final Report [] Verified Date/Time/Personnel: 05/06/2023 16:59 EST Blood Culture: No Growth at 5 days. PRELIMINARY REPORTS Preliminary Report [] Verified Date/Time/Personnel: 05/01/2023 16:59 EST Culture has been received in lab and is no growth to date. Routine cultures are held for 5 days. Performing Locations *1: This test was performed at: [address], [address] , [facility] ([place]) 05-02-2023 Hospital Discharge instructions Patient Education 05/02/2023 12:26:35 COVID-19 COVID-19 [...] to fight infection (immunocompromised). Live in a custodial or long-term care facility. Have a long-term [...] managed at home with rest, fluids, and aobb-fkf-cetrovq medicines. Treatment for a serious infection usually [...] are safe for you. General instructions Take axak-nui-uosoluv and prescription medicines only as told by [...] are not available, use an alcohol-based hand evp global multimedia sales. ?Avoid touching your mouth, face, eyes, or [...] water are not available, use alcohol-based hand evp [employer] sales. Stay away from other members of your [...] information Centers for Disease Control and Prevention: www.cdc.gov/coronavirus/2019-nco v/index.html World Health Organization: www.who.int/health-topics/tuttle virus Contact a health care provider if: You [...] have a weak immunity, live in a custodial, or have chronic disease. There is no [...] 04/26/2019 Document Revised: 08/16/2019 Document Reviewed: 04/26/2019 Operating Analytics Patient Education 2020 [employer]. Follow Up Care 04/30/2023 19:30:24 With:ELIZABETH WYMAN DO Address: [facility] [address] [place] [phone] When:5 to 7 days Comments:post-hospitalization follow-up [facility] 05-02-2023 Note Discharge Instructions Thank you for allowing [facility] to assist you with your healthcare needs. The following is important discharge information regarding your hospital visit. Your Care Team BROWN, ELIZABETH R DO KAPPER, GINNY FIRER LOCOMOTIVE-HOME HEALTH NURSE LICENSED PRACTICAL Your Diagnosis Acute respiratory failure with hypoxia [...] to 7 days Why: post-hospitalization follow-up Where: [facility] [address] [place] [phone] The Following Activity and Diet Have Been [...] a day Duration: 8 Days Pickup at [facility] #44499 Changed liothyronine 5 Microgram by mouth Two [...] by mouth Once a day Pharmacy Information [facility] #[id number]: Nona [address] [place], [place] [phone] Please take this list to your next [...] not expected to produce life threatening symptoms. nursing home use of high doses can lead to [...] may report side effects to FDA at 8-668-RKV-2361. What other drugs will affect dexamethasone? Sometimes [...] may affect dexamethasone. This includes prescription and cbgt-fps-agcudrd medicines, vitamins, and herbal products. Not all [...] to ensure that the information provided by [employer]. ('[employer]') is accurate, up-to-date, and complete, but no guarantee is made to that effect. Drug information contained herein may be time sensitive. [employer] information has been compiled for use by healthcare practitioners and consumers in the [place] and therefore [employer] does not warrant that uses outside of the [place] are appropriate, unless specifically indicated otherwise. [employer]'s drug information does not endorse drugs, diagnose patients or recommend therapy. [employer] drug information is an informational resource designed [...] effective or appropriate for any given patient. [employer] does not assume any responsibility for any aspect of healthcare administered with the aid of information [employer] provides. The information contained herein is not intended to cover all possible uses, directions, precautions, warnings, drug interactions, allergic reactions, or adverse effects. If you have questions about the drugs you are taking, check with your doctor, nurse or pharmacist. Copyright 8059-4702 [employer]. Version: 10.. Revision Date: 11/05/2022. Education Materials [...] to fight infection (immunocompromised). Live in a custodial or long-term care facility. Have a long-term [...] managed at home with rest, fluids, and wwvy-ffn-nebtouw medicines. Treatment for a serious infection usually [...] are safe for you. General instructions Take hbpw-jfa-vgmfxhw and prescription medicines only as told by [...] are not available, use an alcohol-based hand evp [employer] multimedia sales. ? Avoid touching your mouth, face, eyes, [...] water are not available, use alcohol-based hand evp [employer] sales. Stay away from other members of your [...] information Centers for Disease Control and Prevention: www.cdc.gov/coronavirus/2019-nco v/index.html World Health Organization: www.who.int/health-topics/tuttle virus Contact a health care provider if: You [...] have a weak immunity, live in a custodial, or have chronic disease. There is no [...] 04/26/2019 Document Revised: 08/16/2019 Document Reviewed: 04/26/2019 Elsevier Patient Education 2020 [employer]. Additional Information VACCINATE! IT SAVES LIVES! Members of the community who have not yet received the COVID-19 vaccine and would like to receive it can visit one of [place] vaccine clinics. There are many vaccine clinic locations within the [facility]. For locations and available times, please visit https://gettheshot.coronavirus.o hio.gov/. It is important to note that some COVID mobile vaccine clinics are held outdoors and may be canceled in rainy or stormy conditions. To learn more about pediatric vaccinations (ages 5-11), we invite you to visit the [employer] webpage. https://www.HackPads.org/p ages/6009-Tqnen-Ngrrgssodym-Freq uetfce-Csmgc-Llxcohvqa.html To learn more about the COVID-19 vaccine, we invite you to visit the CDC website for a list of frequently asked questions.https://www.cdc.gov/co ronavirus/2019-ncov/vaccines/faq .html [employer] Patient Portal Access Instructions: Stay connected with your healthcare team and access your personal medical information anytime with the [employer] Patient Portal. Please follow the directions below to create your [employer] account: 1.Access the email account you provided upon registration to the hospital/physician office.2.Look for an invitation email from [facility].3.Open the email and access the invitation link: Accept Invitation to [employer].4.Fill in the required plata to create your account. To access your account, visit [employer] CommunicationsOneChart. Click the blue button labeled Access Patient [...] you will allow to register on the [facility] Patient Portal for access to your information. You can also access the [facility] Patient Portal on the [facility] Anywhere willian. Simply click on Patient Portal and then log into your account. If you would like to receive a full copy of your medical records, please contact the [facility] Medical Records Department by calling [phone], Tuesday through Tuesday between 8 a.m. and [...] Call your local pharmacy or go to [email or web address] to find one close to you.3.Make use of household items: Use cat litter or old coffee grounds to dispose medications if other options are not available. Mix your drugs with these household products, seal them in an airtight container and throw it into the garbage. Call [facility]: [phone] to be sure your drugs can be [...] aware that I should contact my doctor. Patient/Automation Architect Signature: Date/Time: Relationship to Patient: Witness Name/Signature: Date/Time: [facility] 05-01-2023 Note . MICRO - Microbiology PROCEDURE: Streptococcus Pneumoniae Urine Antig [^1 *1] SOURCE: Urine, Clean Catch BODY SITE: COLLECTED DATE/TIME: 05/01/2023 00:38 EST RECEIVED DATE/TIME: 05/01/2023 16:24 EST START DATE/TIME: 05/01/2023 16:24 EST FREE TEXT SOURCE: FINAL REPORTS Final Report [] Verified Date/Time/Personnel: 05/01/2023 16:50 EST Presumptive negative for pneumococcal pneumonia, suggesting no current or recent pneumococcal infection. Infection due to Strep pneumoniae cannot be ruled out since the antigen present in the sample may be below the detection limit of the test. Interpretive Data ^1: Streptococcus Pneumoniae Urine Antig This test has not been evaluated on patients taking antibiotics for greater than 24 hours or on patients who have recently completed an antibiotic regimen. The accuracy of this test has not been proven in young children. Performing Locations *1: This test was performed at: [address], [facility] , [facility] ([place]) 05-01-2023 Note . MICRO - Microbiology PROCEDURE: Legionella Urine Ag [*1] SOURCE: Urine BODY SITE: COLLECTED DATE/TIME: 05/01/2023 00:38 EST RECEIVED DATE/TIME: 05/01/2023 16:24 EST START DATE/TIME: 05/01/2023 16:24 EST FREE TEXT SOURCE: FINAL REPORTS Final Report [] Verified Date/Time/Personnel: 05/01/2023 16:50 EST Presumptive negative for L. pneumophila serogroup 1 antigen in urine, suggesting no recent or current infection. Legionnaire's disease cannot be ruled out since other serogroups and species may also cause disease. Performing Locations *1: This test was performed at: [address], [address] [place] [address] ([place]) 1. COVID-19 Acute, new onset. Continue Remdesivir [...] collaborating with physician, and documenting in chart. [facility] 01-28-2024 Note Date of Service 05/01/2023 Chief Complaint SOB for awhile but got worse today around 1530 today. Pt states she is hvaing bilateral chest pain,just started wearing a CPAP states the mask does't fit right and she can't wear it all night, states when she takes it off she feels more SOB. History of Present Illness Patient is a 68-year-old female, who follows with Dr. Elizabeth Wyman with a past medical history significant for hypertension, hypothyroidism, anxiety and depression, presented to [facility] emergency department with the chief complaint of [...] telemetry for further evaluation and treatment. We w ill continue Remdesivir 100 mg IV daily for 2 days and dexamethasone 6 mg PO daily for 10 days. We will continue duoneb aerosols as needed and scheduled. We will continue supplemental oxygen as needed to maintain oxygen saturations above 90%. Wean oxygen as able. Repeat CMP daily. Patient seen and evaluated this morning while resting in bed. She states that she is feeling betteralready. She continues on 1-2L of oxygen. She is agreeable with the current plan of care. We will continue to wean patient from oxygen. Patient is agreeable with this plan of care. On exam, lungs areclear but diminished. All questions answered. Review of [...] is limited. Correlate with clinical findings. Further imagingcan be considered as clinically indicated. I have personally reviewed the images of this examination and agree with the resident's findings and interpretation. Assessment/Plan 1. COVID-19 Acute, new onset. Continue Remdesivir IV daily, day 2/3. Continue dexamethasone 6 mg PO daily, day 05/14. Continue duoneb aerosols as needed and scheduled. [...] tests, reviewing lab results, vital sign trends, medicalhistory, reviewing medications and ordering home medications, examining [...] by GINNY HERNANDEZ on 05/01/2023 02:08 PM [facility]01-27-2024 Note ORIGINAL EXAMINATION: TWO XRAY VIEWS OF [...] Date: 04/30/2023 8:52:26 PM [facility] Discharge summary Pt walked to room 7 from triage, pulse ox was 90% after walking. pt put on 3L [place] o2 and recovered to 94%. Pt denies cardiac history, states she takes BP meds. denies stents, states she has cardiac family history in [facility] and [facility]2024 NoteSinus tachycardia LAE, consider biatrial enlargement Low voltage, precordial leads Minimal ST elevation, lateral leads Electronic Signature: JENN KIM MD 04/30/2023 20:31:[facility] Narrative No data available for this section [facility] Summary Purpose Family History No Family History Records Found Advance Directives No Advanced Directives Records Found Additional Source Comments Patient Care team informatio n (unrecognized section and content) Care Team Personnel Name: ELIZABETH WYMAN DO Member Role: Primary Care Physician Address: Address: [facility] [address] [place] [address] [place] [address]- Care Team Related Persons Name: CORLA HALEY Address: [place] [address] [place] [address] [place] INFORMATION SOURCE (unrecogn ized section and content) [...] BE BASED ON THE PRIMARY CLINICAL RECORDS. [facility]. provides no warranty or guarantee of the accuracy or completeness of information in this document.
[2023-06-06 18:58] LABS: Free T3 2.3 pg/mL (2.18-3.98); T4 Free Direct 0.78 ng/dL (0.76-1.46); Thyroid Stim Hormone (TSH) 2.02 uIU/mL (0.358-3.74)
== END | disposition home or self-care (01) ==
LOC: MTLAB 14:25
PROVIDERS: PCP Family Medicine; Referring Provider Psychiatry & Neurology Psychiatry; Visit Provider Psychiatry & Neurology Psychiatry
DX: E03.9 Hypothyroidism, unspecified (principal)
CPT/HCPCS: 36415; 84439; 84443; 84481

== ENCOUNTER → 2023-06-07 | Outpatient (CLI) | payer MEDICARE, OTHER, SELFPAY ==
--- NOTE | 2023-06-07 12:31 | BI_ITS ---
MAMMOGRAPHY - BILATERAL SCREENING 3-D TOMOSYNTHESIS REASON FOR EXAM: Female, 68 years old. screening for breast cancer PERTINENT HISTORY: No significant family history. TECHNIQUE: 2-D mammograms and 3-D Tomosynthesis of the breast (s) were performed. CAD was performed. COMPARISON: 06/03/2022 FINDINGS: The breast composition is heterogeneously dense that can obscure small breast masses. Scattered benign calcifications are seen. No dense spiculated masses or suspicious microcalcifications are identified. No architectural distortion is identified. There is no skin thickening or retraction. There has been no significant change since the prior study. BI/SCRN MAMM (CAD)W/ADWOA BILAT IMPRESSION: No mammographic signs of malignancy. Routine yearly mammograms recommended. ASSESSMENT CATEGORY: BIRADS Category 1: Negative. A letter regarding these results will be sent to the patient by the facility within 30 days. FOLLOW UP RECOMMENDATION: Yearly follow up mammogram recommended. (A) Approximately 10% of breast cancers are not detected by mammography. A normal mammogram should not delay biopsy of a clinically suspicious abnormality. Electronically Signed: Jeffrey Schroeder MD at 17:34 EST ,
== END | disposition home or self-care (01) ==
LOC: OPBI 12:31
PROVIDERS: PCP Family Medicine; Referring Provider Nurse Practitioner; Visit Provider Nurse Practitioner
DX: Z12.31 Encounter for screening mammogram for malignant neoplasm of breast (principal)
CPT/HCPCS: 77063; 77067

== ENCOUNTER → 2023-09-19 | Outpatient (CLI) | payer MEDICARE, OTHER, SELFPAY ==
--- NOTE | 2023-09-19 10:46 | RAD_ITS ---
STUDY: X-RAY - LEFT KNEE REASON FOR EXAM: Female, 68 years old. Knee injury TECHNIQUE: 3 view(s) of the knee. COMPARISON: None. FINDINGS: Normal visualized distal femur. Normal visualized proximal tibia and fibula. Normal proximal tibiofibular articulation. There is severe degenerative arthrosis of the medial femorotibial compartment with severe joint space narrowing. Normal lateral femorotibial compartment. There is moderate degenerative arthrosis of the patellofemoral articulation. The soft tissue structures are unremarkable. RAD/Knee 3 Views IMPRESSION: Degenerative arthrosis. Electronically Signed: Ronak Mancia MD at 11:56 EDT ,
== END | disposition home or self-care (01) ==
PROVIDERS: PCP Family Medicine; Referring Provider Physician Assistant; Visit Provider Physician Assistant
DX: S89.92XA Unspecified injury of left lower leg, initial encounter (principal)
CPT/HCPCS: 73562

== ENCOUNTER → 2024-03-22 | Outpatient (CLI) | payer MEDICARE, OTHER, SELFPAY | END | disposition home or self-care (01) | LOC: SL 19:44 | PROVIDERS: PCP Family Medicine; Referring Provider Nurse Practitioner Acute Care; Visit Provider Nurse Practitioner Acute Care | DX: G47.33 Obstructive sleep apnea (adult) (pediatric) (principal) | CPT/HCPCS: 95811 ==

== ENCOUNTER → 2024-03-30 | Outpatient (CLI) | payer MEDICARE, OTHER, SELFPAY ==
[2024-03-30 10:21] LABS: Hematocrit 41.3 % (37-47); Hemoglobin 13.5 g/dL (12.0-15.0); Mean Corp Hgb Conc 32.7 g/dL (32-36); Mean Corpuscular Hgb 27.3 pg (27.0-32.0); Mean Corpuscular Volume 83.4 fL (81-99); Mean Platelet Vol. 10.4 fl (6.2-12.0); Platelet Count 233 K/mm3 (150-450); RBC Distribution Width SD 39.2 fl (35.1-43.9); Red Blood Count 4.95 M/mm3 (4.2-5.4); White Blood Count 7.6 K/mm3 (4.4-11.0)
[2024-03-30 12:16] LABS: ALB/GLOB Ratio 1.1 RATIO (0.9-2.4); AST(SGOT) 18 U/L (15-37); Alanine Aminotransfer ALT/SGPT 25 U/L (13-56); Albumin, Serum 3.6 g/dL (3.2-5.0); Alkaline Phosphatase 86 U/L (45-117); Anion Gap 6 (5-15); BUN 13 mg/dL (7-18); Calcium,Total 8.8 mg/dL (8.5-10.1); Chloride 107 mmol/L (98-107); Cholesterol 246 mg/dL (200); Creatinine, Serum 0.68 mg/dL (0.55-1.02); EST Glomerular Filtration Rate 90 mL/min (>60); Est Glom Filt Rate - Afr Amer 109 mL/min (>60); Globulin 3.3 g/dL (2.2-4.2); Glucose 116 mg/dL (74-106); High Density Lipoprotein 62 mg/dL; Protein, Total 6.9 g/dL (6.4-8.2); Sodium Level 139 mmol/L (136-145); Triglycerides 101 mg/dL; Very Low Density Lipoprotein 20 mg/dL (5-40)
== END | disposition home or self-care (01) ==
LOC: MTLAB 07:52
PROVIDERS: PCP Family Medicine; Referring Provider Family Medicine; Visit Provider Family Medicine
DX: I10 Essential (primary) hypertension (principal); R73.03 Prediabetes; E03.9 Hypothyroidism, unspecified
CPT/HCPCS: 36415; 80053; 80061; 84443; 85027

== ENCOUNTER → 2024-06-13 | Outpatient (CLI) | payer MEDICARE, OTHER, SELFPAY ==
--- NOTE | 2024-06-13 13:09 | BI_ITS ---
PROCEDURE: SCRN MAMM (CAD)W/ADWOA BILAT REASON FOR EXAM: F, Age 69 y/o , SCREENING. No family history. TECHNIQUE: Bilateral screening digital breast tomosynthesis with 2D and 3D images. Computer aided detection. COMPARISON: Prior exam(s) dating back to June 07, 2023.. FINDINGS: There are scattered areas of fibroglandular density. A tissue clip marker is seen in the retroareolar area of the right breast. This is unchanged. Stable small bilateral axillary lymph nodes. Stable examination No suspicious masses, areas of developing architectural distortion, or suspicious calcifications. BI/SCRN MAMM (CAD)W/ADWOA BILAT IMPRESSION: BI-RADS 2: BENIGN. RECOMMEND ANNUAL MAMMOGRAPHIC SCREENING. Follow-up code: Routine Follow-up The patient will be notified of the results by letter. Reading Location: [place] [id number]
== END | disposition home or self-care (01) ==
LOC: OPBI 13:07
PROVIDERS: PCP Family Medicine; Referring Provider Family Medicine; Visit Provider Family Medicine
DX: Z12.31 Encounter for screening mammogram for malignant neoplasm of breast (principal)
CPT/HCPCS: 77063; 77067

== ENCOUNTER → 2024-10-15 | Outpatient (CLI) | payer MEDICARE, OTHER, SELFPAY ==
--- NOTE | 2024-10-15 09:31 | RAD_ITS ---
EXAM: Left tibia and fibula CLINICAL HISTORY: Left leg injury COMPARISON: None TECHNIQUE: Left tibia and fibula two views FINDINGS: There is no fracture or dislocation. Medial joint space narrowing is noted at the knee. Mineralization is normal. There is no visible atherosclerosis. RAD/Tibia & Fibula 2 Views IMPRESSION: No fracture or dislocation is identified. Reading Location: [facility]
== END | disposition home or self-care (01) ==
LOC: MTRAD 09:31
PROVIDERS: PCP Family Medicine; Referring Provider Family Medicine; Visit Provider Family Medicine
DX: S89.92XS Unspecified injury of left lower leg, sequela (principal)
CPT/HCPCS: 73590